=== PATIENT | female | born 2005 | race Caucasian/White ===

== ENCOUNTER 2023-07-23 08:28 | Emergency (ER) | payer BC, SELFPAY ==
--- NOTE | 2023-07-23 08:32 | XR_ITS ---
FINAL REPORT CLINICAL HISTORY: fall FINDINGS: Left ankle Three views were obtained. There is no acute fracture or dislocation. The joint spaces appear normal. No soft tissue abnormality is identified. IMPRESSION: No acute process. Reviewed, Interpreted and Dictated by Bartolo Oh III, MD Transcribed by Fernanda Macario Authenticated and [facility]
--- NOTE | 2023-07-23 08:32 | XR_ITS ---
FINAL REPORT CLINICAL HISTORY: fall. lateral sided pain FINDINGS: Left foot Three views were obtained. There is no acute fracture or dislocation. The joint spaces appear normal. No soft tissue abnormality is identified. IMPRESSION: No acute process. Reviewed, Interpreted and Dictated by Bartolo Oh III, MD Transcribed by Fernanda Macario Authenticated and [facility]
[2023-07-23 09:00] VITALS: BP 123/83; PULSE 76; RESP 18; TEMP 36.8; O2SAT 100; BMI 21.7
--- NOTE | 2023-07-23 09:45 | EXP.UTC ---
Discharge Plan Disposition Patient Disposition: Home, Self-Care Condition: Good Prescriptions Prescriptions: No Action sertraline [Zoloft] 100 mg tablet 100 mg PO DAILY Qty: 90 3RF norgestimate-ethinyl estradiol [Tri-Sprintec (28)] 0.18/0.215/0.25 mg-35 mcg (28) tablet 1 tab PO DAILY Qty: 84 3RF Referrals Follow up/Referrals: Kapil Castro MD [Primary Care Provider] - See instructions Activity Restrictions/Add. Instructions Additional Instructions/Restrictions: *weight bearing as tolerated *RICE, Rest the extremity, Ice 15-20 minutes 3-4 times daily, Compress- wear the leonardo wrap as discussed as much as possible to help reduce swelling and pain, Elevate the extremity when at rest *Leonardo wrap is for support and help control swelling, use it except in the shower. Be sure that is not to tight but not to loose either *Elevate when resting? *Ibuprofen 600mg every 6-8 hours as needed for pain an inflammation. If need something more can take Tylenol in between doses of Ibuprofen to help Immediately follow up with your family doctor for new or worsening of symptoms, or no noticeable improvement over the next 3-5 days Clinical Impressions Clinical Impression: Strain of ankle and foot Qualifiers: Encounter type: initial encounter Laterality: left Qualified Code(s): S96.912A - Strain of unspecified muscle and tendon at ankle and foot level, left foot, initial encounter Instructions Patient Instructions: Ankle Sprain, DI for Foot Sprain Discharge ED Provider: Quiana Dias [facility] General Stated complaint: AO 07/22 TWISTED LT ANKLE Mode of Arrival: Ambulatory Source of Information: Patient and Parent(s) Limitations: No Limitations Time Seen by Provider: 07/23/23 09:45 Description of Symptoms (Recalled from Triage Doc. by RN): PATIENT C/O INJURY TO LEFT ANKLE AFTER FALLING DOWN STAIRS LAST NIGHT HEENT Symptoms (Recalled from RN notes): No Resp Symptoms (Recalled from RN notes): No Skin Symptoms (Recalled from RN notes): No MS Symptoms (Recalled from RN notes): Yes Functional Status (Recalled from RN notes): WNL History of Present Illness Provider Complaint: Patient states that she was walking down the steps last night when she slipped and fell and landed on the side of her foot and ankle States that she has been having pain in her ankle and foot ever since Denies any other injury Related Data Previous Rx's Medication Instructions Recorded sertraline 100 mg tablet (Zoloft) 100 mg PO DAILY #90 tabs 04/11/23 norgestimate-ethinyl estradiol 1 tab PO DAILY #84 tabs 04/29/23 0.18 mg/0.215mg/0.25mg-35 mcg(28)tablet (Tri-Sprintec (28)) Allergies Allergy/AdvReac Type Severity Reaction Status Date / Time cefdinir [From Omnicef] Allergy Mild Verified 05/23/23 09:31 Worker's Comp Is this a Worker's Comp case?: No [facility] Disclaimer: The information contained in this section may have been updated after the patient was seen, as this information can be updated by other users. Medical History (Updated 07/23/23 @ 10:46 by Quiana Dias APRN) Anxiety Asthma Social History Smoking Status: Never smoker alcohol intake: never substance use type: denies use current occupational status: employed Travel in the last 8 weeks: None household members: family housing: house education level: high school ROS Obtained: Yes All systems reviewed & no additional complaints except as documented and Yes Systems reviewed as appropriate & no additional complaints except as documented Constitutional Constitutional: Reports system reviewed and no additional complaints, except as documented and Reports as per HPI Eyes Eyes: Reports system reviewed and no additional complaints, except as documented and Reports as per HPI ENT Ears, Nose, Mouth, and Throat: Reports system reviewed and no additional complaints, except as documented and Reports as
[2023-07-23 10:09] VITALS: BP 123/83; PULSE 76; RESP 18; TEMP 36.8; O2SAT 100
== END 2023-07-23 10:48 | disposition home or self-care (01) ==
PROVIDERS: Emergency Provider Nurse Practitioner; PCP Family Medicine
DX: S96.912A Strain of unspecified muscle and tendon at ankle and foot level, left foot, initial encounter (principal); J45.909 Unspecified asthma, uncomplicated; W10.8XXA Fall (on) (from) other stairs and steps, initial encounter
CPT/HCPCS: 73610; 73630; 99212; 99214; G0463

== ENCOUNTER 2024-01-28 12:08 | Outpatient (CLI) | payer BC, SELFPAY ==
[2024-01-28 18:07] LABS: Basophils % 0.5 % (0.1-2.0); Eosinophils # 0.1 K/mm3 (0.0-0.4); Eosinophils % 1.5 % (0.1-12.0); Hematocrit 41.3 % (37.0-47.0); Hemoglobin 13.5 g/dL (12.2-16.2); Lymphocytes # 1.1 K/mm3 (0.7-4.5); Lymphocytes % 22.4 % (10-50); Mean Corpuscular HGB Conc 32.7 g/dL (31.8-35.4); Mean Corpuscular Hemoglobin 32.7 pg (27.0-31.2); Mean Corpuscular Volume 100.1 fl (81-99); Mean Platelet Volume 10.9 fl (7.4-10.4); Monocytes # 0.2 K/mm3 (0.1-1.0); Monocytes % 4.8 % (1.7-9.3); Neutrophils # 3.4 K/mm3 (1.8-7.8); Neutrophils % 70.9 % (37.0-80.0); Platelet Count 217 K/mm3 (142-424); Red Blood Count 4.13 M/mm3 (4.20-5.40); Red Cell Distribution Width 13.2 % (11.5-17.5); White Blood Count 4.9 K/mm3 (4.5-13.0)
[2024-01-28 18:36] LABS: Alanine Aminotransferase 11 U/L (12-78); Albumin Level 3.8 g/dl (3.5-5.0); Albumin/Globulin Ratio 1.4 (1.1-1.8); Alkaline Phosphatase 84 U/L (38-126); Anion Gap 8.2 mEq/L (5-15); Aspartate Amino Transferase 23 U/L (14-36); Bilirubin,Total 0.4 mg/dl (0.2-1.3); Blood Urea Nitrogen 5 mg/dl (7-17); Calcium 9.3 mg/dl (8.4-10.2); Carbon Dioxide 29 mmol/L (22.0-30.0); Chloride 104 mmol/L (98-107); Estimated Glomerular Filt Rate 91 ml/min (>60); GFR (African American) 111 ML/MIN (>60); Globulin 2.8 g/dL (1.3-3.2); Glucose 93 mg/dl (74-100); Potassium 4.2 mmoL/L (3.5-5.1); Sodium 137 mmol/L (136-145); Total Protein,Serum 6.6 g/dl (6.3-8.2)
== END 2024-01-28 23:59 | disposition home or self-care (01) ==
LOC: LAB.DROPOF 01-29 12:08
PROVIDERS: PCP Nurse Practitioner; Visit Provider Nurse Practitioner
DX: K52.9 Noninfective gastroenteritis and colitis, unspecified (principal)
CPT/HCPCS: 80053; 85025

== ENCOUNTER 2024-03-27 14:53 | Outpatient (CLI) | payer BC, SELFPAY ==
[2024-03-27 19:17] LABS: Thyroid Stimulating Hormone 1.71 uIU/mL (0.465-4.68)
== END 2024-03-27 23:59 | disposition home or self-care (01) ==
LOC: LAB.DROPOF 03-30 14:53
PROVIDERS: PCP Family Medicine; Visit Provider Family Medicine
DX: R53.83 Other fatigue (principal)
CPT/HCPCS: 84443

== ENCOUNTER 2024-09-17 07:29 | Outpatient (CLI) | payer BC, SELFPAY ==
[2024-09-17 08:03] LABS: Basophils % 0.6 % (0.1-2.0); Eosinophils # 0.2 K/mm3 (0.0-0.4); Eosinophils % 3.6 % (0.1-12.0); Hematocrit 36.8 % (37.0-47.0); Hemoglobin 12.5 g/dL (12.2-16.2); Lymphocytes # 1.5 K/mm3 (0.7-4.5); Mean Corpuscular Hemoglobin 30.7 pg (27.0-31.2); Mean Corpuscular Volume 90.4 fl (81-99); Mean Platelet Volume 11.9 fl (7.4-10.4); Monocytes # 0.4 K/mm3 (0.1-1.0); Monocytes % 8.8 % (1.7-9.3); Neutrophils # 2.6 K/mm3 (1.8-7.8); Neutrophils % 55.8 % (37.0-80.0); Platelet Count 226 K/mm3 (142-424); Red Blood Count 4.07 M/mm3 (4.20-5.40); Red Cell Distribution Width 11.8 % (11.5-17.5); White Blood Count 4.7 K/mm3 (4.5-13.0)
[2024-09-17 08:33] LABS: Hemoglobin A1C 4.7 % (4.0-6.0)
[2024-09-17 08:47] LABS: Alanine Aminotransferase 15 U/L (12-78); Albumin Level 4.1 g/dl (3.5-5.0); Albumin/Globulin Ratio 1.7 (1.1-1.8); Alkaline Phosphatase 82 U/L (38-126); Anion Gap 8.7 mEq/L (5-15); Aspartate Amino Transferase 26 U/L (14-36); Bilirubin,Total 0.3 mg/dl (0.2-1.3); Blood Urea Nitrogen 7 mg/dl (7-17); Calcium 9.3 mg/dl (8.4-10.2); Carbon Dioxide 29 mmol/L (22.0-30.0); Chloride 105 mmol/L (98-107); Estimated Glomerular Filt Rate 107 ml/min (>60); GFR (African American) 129 ML/MIN (>60); Globulin 2.4 g/dL (1.3-3.2); Glucose 76 mg/dl (74-100); Potassium 3.7 mmoL/L (3.5-5.1); Sodium 139 mmol/L (136-145); Total Protein,Serum 6.5 g/dl (6.3-8.2)
[2024-09-17 09:18] LABS: Thyroid Stimulating Hormone 1.23 uIU/mL (0.465-4.68)
== END 2024-09-17 23:59 | disposition home or self-care (01) ==
PROVIDERS: PCP Family Medicine; Visit Provider Nurse Practitioner
DX: E16.2 Hypoglycemia, unspecified (principal)
CPT/HCPCS: 36415; 80053; 82533; 83036; 84443; 85025

== ENCOUNTER 2025-03-25 12:11 | Outpatient (CLI) | payer BC, SELFPAY ==
--- OUTSIDE RECORDS SUMMARY | 2024-12-21 04:45 | XMS_ITS ---
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 Encounters Encounter Location Date Provider Diagnosis [facility] [address] [place] [address] 12/21/2024 Katy Farias Plan Of Treatment No Information Progress Notes * Jenise HOLGUINDOB:2005 ([age] yo F)Acc No.[id number]:12/21/2024 Progress Note Patient: Jensie Newsome Provider: José Manuel FARIAS APRN :2005 A ge:19 Y S ex:Female Date:12/21/2024 [id number] Subjective: * Chief Complaints: * 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
--- NOTE | 2025-03-25 12:14 | XR_ITS ---
FINAL REPORT CLINICAL HISTORY: acute low back pain with left-sided sciatica COMPARISON: None FINDINGS: Three views of the lumbosacral spine were obtained. No fracture is identified. Disc spaces are well-maintained. Minimal levoscoliosis. No subluxation. IMPRESSION: Minimal scoliosis. Reviewed, Interpreted and Dictated by Basia Mccann MD Transcribed by Christine Bajwa Authenticated and [facility]
--- NOTE | 2025-03-25 12:14 | XR_ITS ---
FINAL REPORT CLINICAL HISTORY: thoracic back pain COMPARISON: None FINDINGS: Two views of the thoracic spine were obtained. No fracture is seen. Minimal dextroscoliosis. No subluxation. Vertebrae are normal in height. IMPRESSION: Minimal scoliosis. Reviewed, Interpreted and Dictated by Basia Mccann MD Transcribed by Christine Bajwa Authenticated and [facility]
--- OUTSIDE RECORDS SUMMARY | 2025-03-25 12:18 | XMS_ITS | Clinical Summary ---
Author Organization [employer] ([place], [place], [place], [place]) Address [address] [place] [address] Care Team Providers Care Front Desk Person Name Role Phone Kapil Castro MD Primary Care Provider [phone] Allergies Active Allergy Reactions Criticality Noted Date Comments Cefdinir Hives High 08/05/2024 Medications norgestimate-eth inyl estradioL 0.18/0.215/0.25 mg-35 mcg (28) per tablet Take 1 tablet by mouth daily. Active sertraline (ZOLOFT) 100 MG tablet Take by mouth. 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 Gender Identity Not on file Sexual Orientation Not on file Last Filed Vital Signs Vital Sign Reading Time Taken Comments Blood Pressure 122/77 08/05/2024 6:01 PM EST Pulse 66 08/05/2024 6:01 PM EST Temperature 36.8 C (98.3 F) 08/05/2024 4:44 PM EST Respiratory Rate 18 08/05/2024 6:03 PM EST Oxygen Saturation 98% 08/05/2024 6:01 PM EST Inhaled Oxygen Concentration - - Weight 63.5 kg (140 lb) 08/05/2024 4:44 PM EST Height 167.6 cm (5' 6 ) 08/05/2024 4:44 PM EST Body Mass Index 22.6 08/05/2024 4:44 PM EST Plan of Treatment Health Maintenance Due Date Last Done Comments Depression Screening (12+) 2015 HIV Screening 2018 Meningococcal B Vaccine (1 of 2 - Standard) 2019 Hepatitis C Screening 2021 COVID-19 VACCINE ( - 2023- season) 2024 Pap Smear 2024 Influenza Vaccine (#1) 2025 Tobacco Cessation Counseling and Screening (12+) 08/05/2025 08/05/2024 DTAP/TDAP/TD VACCINES (8 - Td or Tdap) 02/07/2030 02/08/2020, 03/17/2015, 10/03/2007, Additional history exists Pneumococcal Vaccine: 0-49 Years Aged Out 10/03/2004, 04/12/2004, 02/10/2004, Additional history exists No longer eligible based on patient's age to complete this topic Insurance BLUE CROSS/BLUE SHIELD Care Teams Front Desk Person Relationship Specialty Start Date End Date Kapil Castro MD [address] [place] [address] PCP - General Family Medicine 08/05/24
--- OUTSIDE RECORDS SUMMARY | 2025-03-25 12:18 | XMS_ITS | Referral Summary ---
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
--- OUTSIDE RECORDS SUMMARY | 2025-03-25 12:18 | XMS_ITS | Data Portability ---
Author Organization [facility],, Main Office Address [address] [place] [address] Assessment Encounter Date Assessment Date Assessment LastModified by Organization Details LastModified Time 12/18/2024 12/18/2024 Annual gynecological exam performed. Patient will come back in a year unless there are new symptoms. [email or web address] Not available 12/18/2024 09:30:51 Plan of Treatment Reminders Order Date Submit Date Provider Last Modified By Organization Details Last Modified Time Details Appointments None recorded. Lab test, urine 2024 025 [facility] CLA[facility] Main Office, [address], [place], [address], 5 16:11:15 urinalysis , dipstick 2024 025 LE CLA[facility] Main Office, [address], [place], [address], 5 12:44:44 Referral None recorded. Procedures None recorded. Surgeries None recorded. Imaging None recorded. Medication Orders None recorded. Patient TargetsNo targets recorded. Patient InstructionsNo instructions recorded. Reason for Referral None Reported. Results Created Date Observation Date Name Description Value Unit Range Abnormal Flag Note LastModifiedBy Organization Detail LastModifiedTime 12/19/1912/22/2024 PAP TEST THIN PREP Pap test thin prep Negati ve for Intrae pithel ial Lesion or Malign danny normal ACCES DIANA #: [id number] 13 Sourc e: Cervi hi/E ndoce rvica l LMP: 04/15 /2025 Date Taken : 12/18 Speci men Type: ThinP rep Vial Date Repor nito: 2024 Clini hi Data: Last Pap: NEVER Cytot ech: Wendy laine Vickerses , CT( CP) Date Repor nito: 2024 Speci men Adequ acy: Satis facto ry for evalu ation Endoc ervic al/tr ansfo rmati on zone compo nent prese nt Gener al Categ oriza tion: NEGAT FATOU FOR INTRA EPITH ELIAL LESIO N OR MALIG JAGRUTI The follo wing tests have been order ed as reque sted and a separ ate repor t will be issue d: Neiss eria gonor rhoea e, Chlam ydia trach omati s, Vagin itis Panel This speci men has been sincere zed by the ThinP rep Imagi ng Syste m, an inter activ e compu ter syste m which jocelyn ts the lab in the scree tarah of ThinP rep Pap Test slide s. Follo wing imagi ng, the slide was revie wed by a Cytot careyno logis t and/o r Patho logis t. Cervi hi cytol ogy is a scree tarah test prima rily for squam ous cance rs and precu rsors and has assoc iated false -nega tive and false -posi tive resul ts. New techn ologi es such as liqui d-bas ed prepa ratio ns may decre ase but will not elimi reji all false -nega tive resul ts. Regul ar sampl ing and follo w-up of unexp sherrie d clini hi signs and sympt oms are recom letty d to minim ize false negat fatou resul ts. End of t Techn ical servi jane provi ded by [facility] [employer], Kopo Kopo, d/b/a Bonnie marks, [address] [place] [address] Kulwinder rouse MD, Labor ator Dire tor. Case revie wed and diagn osis rende red at [facility], [facility], d/b/a Path[facility]ha marks, [address] [place] [address] Kulwinder rouse MD, Labor atory Direc tor. CONFI DENTI AL Not Available [facility] ([facility]) [address], [place], [address], 12/22/2024 11:51:11 12/19/19 25 12/20/2024 VAGIN ITIS PANEL trichomonas vaginalis, aptima (panther) NOT DETECT ED normal Trich omona s vagin cristóbal: DNA testi ng perfo rmed by Trans cript ion Media nito Ampli ficat ion (TMA) These resul ts shoul d be inter prete d in light of all clini hi and labor atory findi ngs. This assay is highl y accur ate, but rare false posit fatou and negat fatou resul ts may occur . Posit fatou resul ts in low preva lence popul ation s may requi re re-ev aluat ion. A negat fatou resul t does not precl ude a possi ble infec tion due to a speci men inade quacy or sampl ing error . Test perfo rmed by [facility], [facility], d/b/a Path deysi, [address], [place] [address] , Unique Vivar ra, DO, Labor atory Direc tor. Gardn erell a vagin cristóbal, Kendy da speci es: Genom ic DNA is isola nito from patie nt speci mens by stand hung labor atory techn iques and sincere zed using custo m OpenA rray plate s, perfo rmed on the Quant Studi o 12K Flex Real Time PCR syste m. A posit fatou resul t is provi ded for patho genic bacte jaqueline, virus and/o r funga l speci es based on detec tion of ampli ficat ion produ cts. Shanice l vagin al deepak resul ts of Shanice l or [place] nito are deter mined by calcu latin g the ratio of the organ ism to the total bacte jaqueline prese nt in the speci men, and tari ring that ratio to a PathG roup patie nt popul ation . Overa ll resul ts of Shanice l, Borde rline and Abnor mal are deter mined using a proba bilit y model which was devel oped by an exten sive sincere sis and integ ratio n of clini hi thres holds for marke r organ isms on a large set of sympt omati c & asymp tomat ic speci mens. Patie nt popul ation s with diffe rent demog raphi cs from the PathG roup model popul ation may have diffe rent indic ator organ isms with diffe rent relat fatou ratio s, which would influ ence the final resul ts. Resul ts shoul d be inter prete d in the jacky xt of all clini hi and labor atory findi ngs. The test was devel oped and its perfo rmanc e donal cteri stics deter mined by [employer], Kopo Kopo d/b/a Path rou. It has not been clear ed or appro saray by the U.S. Food and Drug Admin istra tion. The FDA has deter mined that such clear ance or appro familia is not neces sameer. Perti nent refer ence inter vals are avail able from the labor atory on reque st. Test( s) perfo rmed by [employer], Kopo Kopo, d/b/a Path rou, [address], [place] [address] , Unique Vivar ra, DO, Labor atory Direc tor. Not Available [facility] ([facility]) [address], [place], [address], 12/22/2024 11:51:12 12/19/19 25 12/22/2024 VAGIN ITIS PANEL gee sp. Not Detect ed normal Trich omona s vagin cristóbal: DNA testi ng perfo rmed by Trans cript ion Media nito Ampli ficat ion (TMA) These resul ts shoul d be inter prete d in light of all clini hi and labor atory findi ngs. This assay is highl y accur ate, but rare false posit fatou and negat fatou resul ts may occur . Posit fatou resul ts in low preva lence popul ation s may requi re re-ev aluat ion. A negat fatou resul t does not precl ude a possi ble infec tion due to a speci men inade quacy or sampl ing error . Test perfo rmed by [facility], d/b/a Path rou, [address], [facility] [place] [address] , Unique Vivar ra, DO, Labor atory Direc tor. Gardn erell a vagin cristóbal, Kendy da speci es: Genom ic DNA is isola nito from patie nt speci mens by stand hung labor atory techn iques and sincere zed using custo m OpenA rray plate s, perfo rmed on the Quant Studi o 12K Flex Real Time PCR syste m. A posit fatou resul t is provi ded for patho genic bacte jaqueline, virus and/o r funga l speci es based on detec tion of ampli ficat ion produ cts. Shanice l vagin al deepak resul ts of Shanice l or [place] nito are deter mined by calcu latin g the ratio of the organ ism to the total bacte jaqueline prese nt in the speci men, and tari ring that ratio to a PathG roup patie nt popul ation . Overa ll resul ts of Shanice l, Borde rline and Abnor mal are deter mined using a proba bilit y model which was devel oped by an exten sive sincere sis and integ ratio n of clini hi thres holds for marke r organ isms on a large set of sympt omati c & asymp tomat ic speci mens. Patie nt popul ation s with diffe rent demog raphi cs from the PathG roup model popul ation may have diffe rent indic ator organ isms with diffe rent relat fatou ratio s, which would influ ence the final resul ts. Resul ts shoul d be inter prete d in the jacky xt of all clini hi and labor atory findi ngs. The test was devel oped and its perfo rmanc e donal cteri stics deter mined by [employer] d/b/a [employer] rou. It has not been clear ed or appro saray by the U.S. Food and Drug Admin istra tion. The FDA has deter mined that such clear ance or appro familia is not neces sameer. Perti nent refer ence inter vals are avail able from the [employer] atory on reque st. Test( s) perfo rmed by [email or web address], Kopo Kopo, d/b/a [facility] [employer] rou, [address], [place] [address] , Unique Vivar ra, , Labor ator Dire tor. Not Available [facility]) [address], [place], [address], 12/22/2024 11:51:12 12/19/19 25 12/22/2024 VAGIN ITIS PANEL gardnerella vaginalis Not Detect ed normal Trich omona s vagin cristóbal: DNA testi ng perfo rmed by Trans cript ion Media nito Ampli ficat ion (TMA) These resul ts shoul d be inter prete d in light of all clini hi and labor atory findi ngs. This assay is highl y accur ate, but rare false posit fatou and negat fatou resul ts may occur . Posit fatou resul ts in low preva lence popul ation s may requi re re-ev aluat ion. A negat fatou resul t does not precl ude a possi ble infec tion due to a speci men inade quacy or sampl ing error . Test perfo rmed by [employer], d/b/a [facility] [employer] rou, [address], [place] [address] , Unique Vivar ra, , Labor atory Direc tor. Gardn erell a vagin cristóbal, Kendy da speci es: Genom ic DNA is isola nito from patie nt speci mens by stand hung labor atory techn iques and sincere zed using custo m OpenA rray plate s, perfo rmed on the Quant Studi o 12K Flex Real Time PCR syste m. A posit fatou resul t is provi ded for patho genic bacte jaqueline, virus and/o r funga l speci es based on detec tion of ampli ficat ion produ cts. Shanice l vagin al deepak resul ts of Shanice l or [place] nito are deter mined by calcu latin g the ratio of the organ ism to the total bacte jaqueline prese nt in the speci men, and tari ring that ratio to a PathG roup patie nt popul ation . Overa ll resul ts of Shanice l, Borde rline and Abnor mal are deter mined using a proba bilit y model which was devel oped by an exten sive sincere sis and integ ratio n of clini hi thres holds for marke r organ isms on a large set of sympt omati c & asymp tomat ic speci mens. Patie nt popul ation s with diffe rent demog raphi cs from the PathG roup model popul ation may have diffe rent indic ator organ isms with diffe rent relat fatou ratio s, which would influ ence the final resul ts. Resul ts shoul d be inter prete d in the jacky xt of all clini hi and labor atory findi ngs. The test was devel oped and its perfo rmanc e donal cteri stics deter mined by [employer], Kopo Kopo d/b/a Bonnie marks. It has not been clear ed or appro saray by the U.S. Food and Drug Admin istra tion. The FDA has deter mined that such clear ance or appro familia is not neces sameer. Perti nent refer ence inter vals are avail able from the labor atory on reque st. Test( s) perfo rmed by [facility], d/b/a Bonnie marks, [address], [place] [address] , Unique Vivar ra, DO, Labor atory Dire tor. Not Available [facility] ([facility]) [address] [place] [address] [address], [place], [address], 12/22/2024 11:51:12 12/19/19 25 12/19/2024 NEISS ERIA GONOR RHOEA E neisseria gonorrhoeae, aptima NOT DETECT ED normal DNA testi ng perfo rmed by Trans cript ion Media nito Ampli ficat ion (TMA) . Resul ts shoul d be inter prete d in conju nctio n with patie nt histo ry and clini hi prese ntati on. This assay is highl y accur ate, but rare false posit fatou and negat fatou resul ts may occur . Posit fatou resul ts in low preva lence popul ation s may requi re re-ev aluat ion. A negat fatou resul t does not precl ude a possi ble infec tion due to a speci men inade quacy or sampl ing error . Test perfo rmed by [facility], [facility] d/b/a Bonnie marks, [facility] [address], [place] [address] , Unique Vivra ra, DO, Labor atory Dire tor, CLIA# [id number] Not Available [facility] ([facility]) [address] [place] [address] [address], [place], [address], 12/22/2024 11:51:12 12/19/19 25 12/19/2024 CHLAM YDIA TRACH OMATI S chlamydia trachomatis, aptima NOT DETECT ED normal DNA testi ng perfo rmed by Trans cript ion Media nito Ampli ficat ion (TMA) . Resul ts shoul d be inter prete d in conju nctio n with patie nt histo ry and clini hi prese ntati on. This assay is highl y accur ate, but rare false posit fatou and negat fatou resul ts may occur . Posit fatou resul ts in low preva lence popul ation s may requi re re-ev aluat ion. A negat fatou resul t does not precl ude a possi ble infec tion due to a speci men inade quacy or sampl ing error . Test perfo rmed by [facility] d/b/a [facility], [address], [place] [address] , Unique Vivar ra, DO, Labor atory Dire tor, CLIA# [id number] Not Available [facility] ([facility]) [address], [place], [address], 12/22/2024 11:51:13 Result Notes None recorded. Medical Equipment None Reported. Allergies Allergen ID Allergen Name Allergen Category Reaction Reaction Severity Criticality Documentation Date Start Date Code Code System Note Provider Name and Address Organization Details Recorded Time 6855 Omnicef medicatio n Not available Not available Not available 12/18/2024 34263 RxNorm CLAUDETTE Pinedo [address], [place], [address] [place] [address] [facility]YN[facility], 5 09:57:53 Medications Name Sig Start Date Stop Date Status Note LastModified by Organization Details LastModified Time cyclobenzap rine 10 mg tablet TAKE 1 TABLET BY MOUTH THREE TIMES DAILY NEEDED FOR MUSCLE SPASM 12/18 completed Not Available Not Available Not Available amoxicillin 500 mg capsule TAKE 2 CAPSULES BY MOUTH TWICE DAILY 12/18 completed Not Available Not Available Not Available bupropion HCl SR 150 mg tablet,12 hr sustained-r elease TAKE 1 TABLET BY MOUTH A ONE TIME DOSE active Not Available Not Available No t Available triazolam 0.25 mg tablet TAKE 1 TABLET BY MOUTH AT BEDTIME THE NIGHT BEFORE APPOINTME NT. TAKE SECOND TABLET BY MOUTH ONE HOUR PRIOR TO APPOINTME NT. BRING 3RD TABLET TO APPT. 12/18 completed Not Available Not Available Not Available cetirizine 10 mg tablet TAKE 1 TABLET BY MOUTH ONCE DAILY active Not Available Not Available No t Available ibuprofen 800 mg tablet TAKE 1 TABLET BY MOUTH EVERY 6 TO 8 HOURS NEEDED 12/18 completed Not Available Not Available Not Available hydrocodone 5 mg-acetamin ophen 325 mg tablet TAKE 1 TABLET BY MOUTH EVERY 4 TO 6 HOURS NEEDED FOR PAIN 12/18 completed Not Available Not Available Not Available ondansetron HCl 4 mg tablet TAKE 1 TABLET BY MOUTH EVERY 8 HOURS NEEDED FOR NAUSEA AND VOMITING 12/18 completed Not Available Not Available Not Available prednisone 20 mg tablet TAKE 2 TABLETS BY MOUTH ONCE DAILY 12/18 completed Not Available Not Available Not Available sertraline 100 mg tablet TAKE 1 TABLET BY MOUTH ONCE DAILY active Not Available Not Available No t Available Accu-Chek Softclix Lancets USE 1 TO CHECK GLUCOSE 4 TIMES DAILY 12/18 completed Not Available Not Available Not Available metronidazo le 500 mg tablet TAKE 1 TABLET BY MOUTH THREE TIMES DAILY FOR 7 DAYS 12/18 completed Not Available Not Available Not Available Space Chamber USE DIRECTED 12/18 completed Not Available Not Available Not Available baclofen 10 mg tablet TAKE 1 TABLET BY MOUTH THREE TIMES DAILY 12/18 completed Not Available Not Available Not Available hyoscyamine sulfate 0.125 mg tablet TAKE 1 TABLET BY MOUTH 4 TIMES DAILY NEEDED 12/18 completed Not Available Not Available Not Available buspirone 10 mg tablet TAKE 1 TABLET BY MOUTH TWICE DAILY NEEDED FOR ANXIETY OR DEPRESSIO N active Not Available Not Available No t Available montelukast 10 mg tablet TAKE 1 TABLET BY MOUTH ONCE DAILY 12/18 completed Not Available Not Available Not Available epinephrine 0.3 mg/0.3 mL injection, auto-inject or INJECT CONTENTS OF 1 PEN NEEDED FOR ALLERGIC REACTION 12/18 completed Not Available Not Available Not Available methylpredn isolone 4 mg tablets in a dose pack TAKE BY MOUTH DIRECTED ON INSIDE OF PACKAGE 12/18 completed Not Available Not Available Not Available bromphenira mine-pseudo ephedrine-D M 2 mg-30 mg-10 mg/5 mL oral syrup TAKE 5 ML BY MOUTH EVERY 4 TO 6 HOURS NEEDED FOR COLD SYMPTOMS 12/18 completed Not Available Not Available Not Available fluticasone propionate 50 mcg/actuati on nasal spray,suspe nsion USE 1 SPRAY(S) IN EACH NOSTRIL TWICE DAILY 04/18 /2025 completed Not Available Not Available Not Available naproxen 500 mg tablet TAKE 1 TABLET BY MOUTH TWICE DAILY FOR 7 DAYS 12/18 completed Not Available Not Available Not Available amoxicillin 875 mg-potassiu m clavulanate 125 mg tablet TAKE 1 TABLET BY MOUTH TWICE DAILY 12/18 completed Not Available Not Available Not Available escitalopra m 20 mg tablet TAKE 1 TABLET BY MOUTH ONCE DAILY 2024 active Not Available Not Available Not Avai lable Tri-Sprinte c (28) 0.18 mg(7)/0.215 mg(7)/0.25 mg(7)-0.035 mg tablet TAKE 1 TABLET BY MOUTH ONCE DAILY 2024 active Not Available Not Available Not Avai lable Accu-Chek Guide test strips USE TO CHECK GLUCOSE 4 TIMES DAILY 12/18 completed Not Available Not Available Not Available Accu-Chek Guide Me Glucose Meter USE DIRECTED 12/18 completed Not Available Not Available Not Available Vitals Date Recorded Body height Body mass index (BMI) Body weight Heart rate Body temperature Systolic And Diastolic Provider Name and Address Organization Details Last Updated DateTime 167.64 cm 22.8 kg/m2 40250.5 2 g 69 /min 96.8 [degF] 90/61 mm[Hg] Rishabh Williamson [facility], 09:41:19 Social History Question Answer Notes LastModified by Organizat ion Details LastModified Time Tobacco Smoking Status Never Smoker Rishabh Williamson [facility], 12/18/2024 09:35:56 Do You Have An Advance Directive? No [email or web address] Information n ot available 12/18/2024 Are You Currently Sexually Active With Anyone Who Has Traveled (within The Last 12 Weeks) To A Zika-affected Area? No Information not available 12/18/2024 Do You Wear A Helmet When Biking? Yes [email or web address] Information not available 12/18/2024 Are You Blind Or Do You Have Difficulty Seeing? No [email or web address] Information n ot available 12/18/2024 Is Blood Transfusion Acceptable In An Emergency? Yes [email or web address] Information not available 12/18/2024 What Is Your Level Of Caffeine Consumption? Moderate [email or web address] Information not available 12/18/2024 In The 14 Days Before Symptom Onset, Have You Had Close Contact With A Laboratory-confirm ed COVID-19 While That Case Was Ill? No [email or web address] Information n ot available 12/18/2024 In The 14 Days Before Symptom Onset, Have You Had Close Contact With A Person Who Is Under Investigation For COVID-19 While That Person Was Ill? No [email or web address] Information not available 12/18/2024 Have You Been To An Area Known To Be High Risk For COVID-19? No [email or web address] Information not available 12/18/2024 Are You Deaf Or Do You Have Serious Difficulty Hearing? No [email or web address] Information not available 12/18/2024 What Type Of Diet Are You Following? REGULAR [email or web address] Information n ot available 12/18/2024 Have You Processed Blood Or Body Fluids From An Ebola Virus Disease Patient Without Appropriate PPE? No [email or web address] Information not available 12/18/2024 Do You Reside In Or Have You Traveled To An Area Where Ebola Virus Transmission Is Active? No [email or web address] Information not available 12/18/2024 What Is The Highest Grade Or Level Of School You Have Completed Or The Highest Degree You Have Received? [id number] [email or web address] Information not available 12/18/2024 Have There Been Any Changes To Your Family Or Social Situation? No [email or web address] Information no t available 12/18/2024 Are There Any Guns Present In Your Home? Yes [email or web address] Information not available 12/18/2024 Have You Recently Or Are You Planning To Travel To An Area With Zika Virus? No [email or web address] Information not available 12/18/2024 Do You Use Insect Repellent Routinely? No [email or web address] Information not available 12/18/2024 Do You Have A Medical Power Of Tourist Information Assistant? No [email or web address] Information not available 12/18/2024 How Many Children Do You Have? 0 Information not available 12/18/2024 Do You Have Any Pets? Yes [email or web address] Information not available 12/18/2024 What Is Your Relationship Status? Single Information not available 12/18/2024 Do You Use Your Seat Belt Or Car Seat Routinely? Yes [email or web address] Information not available 12/18/2024 Do You Have Smoke And Carbon Monoxide Detectors In Your Home? Yes [email or web address] Information not available 12/18/2024 Are You Passively Exposed To Smoke? No [email or web address] Information no t available 12/18/2024 Are There Any Smokers In Your House? No [email or web address] Information not available 12/18/2024 Do You Use Sunscreen Routinely? Yes Information not available 12/18/2024 Do You Have Difficulty Walking Or Climbing Stairs? No [email or web address] Information not available 12/18/2024 Sex: Unknown Functional Status Question Answer Note LastModified by Organizat ion Details LastModified Time Do you use any illicit or recreational drugs? No [email or web address] Information not available 12/18/2024 What is your level of alcohol consumption? Occasional [email or web address] Information not available 12/18/2024 Are you currently employed? Yes [email or web address] Information not available 12/18/2024 Do you have transportation difficulties? No [email or web address] Information not available 12/18/2024 Are you able to walk? YESWOREST [email or web address] Information not available 12/18/2024 Do you have difficulty doing errands alone? No [email or web address] Information not available 12/18/2024 Are you able to care for yourself? Yes [email or web address] Information n ot available 12/18/2024 Do you have difficulty dressing or bathing? No [email or web address] Information not available 12/18/2024 What is your exercise level? None [email or web address] Information not available 12/18/2024 Mental Status Question Answer Note LastModified by Organizat ion Details LastModified Time Do you feel stressed (tense, restless, nervous, or anxious, or unable to sleep at night)? [id number] Information not available 12/18/2024 Do you have difficulty concentrating, remembering or making decisions? No [email or web address] Information no t available 12/18/2024 Family History Relationship Description Onset Age of this Age Resolved Age Notes LastModified by Organization Details LastModified Time Maternal Grandmother Diabetes mellitus [email or web address] Not available 12/01 09:35:05 Paternal Grandmother Diabetes mellitus [email or web address] Not available 12/01 09:35:05 Paternal Grandmother Arthritis [email or web address] Not available 12/18/2024 09:35:22 Medical History Condition Response Anxiety Disorder Y Asthma Y Gynecological History Statement/Question Response Flow Moderate Date of LMP 12/15/2024 On BCP's at Conception? Y STIs/STDs N HPV Vaccine Y Duration of Flow (days) 7 Age at Menarche 11 Current Control Method BCPs Frequency of Cycle (Q days) 28 Sexually Active? Y Menses Monthly Y Sexual Problems? N LMP Definite Obstetrics History GPAL:G 0 P 0 0 0 0 Past Encounters Encounter ID Performer Location Encounter Start Date Encounter Closed Date Diagnosis/Indication Diagnosis SNOMED-CT Code Diagnosis ICD10 Code Diagnosis Note [id number] Adrián Westfall DO Main Office [address] [place] [address] 12/18/2024 09:13:47 12/18/2024 10:13:17 Routine gynecologic examination [id number] Z01.419 pap Health Concerns Section Related Observation LastModified by Organization Detai ls LastModified Time None Recorded Concern Status LastModified by Organization Details LastModified Time None Recorded Advance Directives Directive N: Payers Insurance Date Sequence Insurance Name Policy Number Policy Girard Covered Member ID Girard Member ID Guarantor Name 01/01/2025 1 [place] [id number] A Artemio Webber [id number] Jenise Webber Notes Date Note Type Note Provider Name and Address Organization Details Recorded Time 12/18/2024 text/html Annual GYNReport ed by PatientHistoryFor history, patient reportsno gynecologic complaintsandno change in interval history.Genitourinary symptomsFor menstrual cycle, patient reportsnormal menses. For urinary symptoms, patient reportsno hematuriaandno incontinence. For vulva, patient reportsno genital lesion. For vagina, patient reportsnormal vaginal discharge.Breast symptomsFor breast, patient reportsno breast pain,no breast lump, andno nipple discharge.Contraceptio nFor current contraception, patient reportssatisfied with current contraception.Endocrin e symptomsFor sexual complaints, patient reportsno sexual complaints,no pain during intercourse, andnormal libido. For menopausal symptoms, patient reportsno menopausal symptomsandnormal vaginal lubrication.Psychologi hi symptomsFor psychological symptoms, patient reportsno depression,no anxiety, andno pmdd. Adrián Westfall, [address], [place], [address], [facility], 01/01/2025 21:03:17 OBGyn Episode No OBEpisode recorded.
--- OUTSIDE RECORDS SUMMARY | 2025-03-25 12:18 | XMS_ITS | Data Portability ---
Author Organization [place] [facility] Address [address] [place] [address] Care Team Providers Care Hand Almond Blancher Name Role Phone ALEXANDRO ROQUE Referring Provider Assessment Encounter Date Assessment Date Assessment LastModified by Organization Details LastModified Time 10/19/2022 10/19/2022 chest wall pain Not available 10/19/2022 10:30:24 Plan of Treatment Reminders Order Date Submit Date Provider Last Modified By Organization Details Last Modified Time Details Appointments None record ed. Lab None record ed. Referral None record ed. Procedures None record ed. Surgeries None record ed. Imaging XR, ribs, unilat eral, 2 view - left side 023 10/19/19 [email or web address] [place] (Centralized Scheduling), [address] [place] [address], [place], [address], 3 11:53:36 Medication Orders None record ed. Patient TargetsNo targets recorded. Patient Instructions Encounter Date Encounter Id Patient Instructions Last Modified By Organization Details Last Modified Time 10/19/2022 [id number] the patient's mother, and the patient were counseled that given the patient has no GI complaints, further investigation from a GI perspective at this time is not indicated. We will order a plain film of the ribs in question, and further investigation is desired referral to a more appropriate search consultant may be beneficial Not available 10/19/2022 10:40:15 Reason for Referral None Reported. Results Created Date Observation Date Name Description Value Unit Range Abnormal Flag Note LastModifiedBy Organization Detail LastModifiedTime 10/19/19 23 10/19/2022 XR, ribs, unila teral , 2 view [place] [facility] Name: Boris WEBBERa l [employer] Phys: Woody RODRIGUEZ, [place] [address] : 2005 Age: 17 Sex: F Acct: [id number] Loc: G.RAD PHONE #: Exam Date: 2022 Status : REG CLI FAX #: Rad# [id number] Unit# [id number] Admit Date: 2022 EXAMS: CPT CODE: [id number] RIBS LT W/CHES T [place] [address] Histor y: 17-yea r-old female with a palpab le abnorm ality of the left anteri or rib. Findin gs: PA view of the chest and left-s ided rib series , for additi onal views, dated 023. Compar alexandra is made with prior study from 09/09/19 10. No focal infilt rate is identi fied. No pleura l effusi on or pneumo thorax is seen. Heart size is normal . No acute displa bibi rib fractu res are identi fied. No visibl e lytic or sclero tic bone lesion s. IMPRES DIANA: 1. No visibl e abnorm ality. 2. Clinic al follow -up is recomm ended. If the palpab le abnorm ality enlarg es, furthe r workup with CT would be recomm ended. Electr onical ly Signed by SG MCKEON MD on 2022 at 1302 Report ed and signed by: SG MCKEON MD CC: Alexandro Roque DRYWALL HANGER HELPER; Arley Mckay Dictat ed Date/T priti: 2022 (1302) Techno logist : CÉSAR DUENAS Transc ribed Date/T priti: 2022 (1302) Transc riptio nist: DR.CLA HUNTER Electr onic Signat ure Date/T priti: 2022 (1302) Printe d Date/T priti: 2022 (8143) BATCH NO: N/A PAGE 1 Signed Report CC'ed Logic: Orderi ng Provid er: WOODY VARGAS Attend ing Provid er: WOODY VARGAS Referr ing Provid er: WOODY VARGAS Consul ting Provid er: JUDE augustine [address] [place], [address], 10/26/2022 11:53:36 Result Notes Documentation Provider Name and Address Organization Details Recorded Time Xr, Ribs, Unilateral, 2 View : [facility] Name: NOMI WEBBER [address] [place] [address] Phys: Woody RODRIGUEZ, [place] [address] : 2005 Age: 17 Sex: F Acct: [id number] Loc: NICOLETTE PHONE #: Exam Date: 10/19/2022 Status: REG CLI FAX #: Rad# [id number] Unit# [id number] Admit Date: 10/19/2022 EXAMS: CPT CODE: [id number] RIBS LT W/CHEST AP/PA [address]63 History: 17-year-old female with a palpable abnormality of the left anterior rib. Findings: PA view of the chest and left-sided rib series, for additional views, dated 10/19/2022. Comparison is made with prior study from 09/09/2009. No focal infiltrate is identified. No pleural effusion or pneumothorax is seen. Heart size is normal. No acute displaced rib fractures are identified. No visible lytic or sclerotic bone lesions. IMPRESSION: 1. No visible abnormality. 2. Clinical follow-up is recommended. If the palpable abnormality enlarges, further workup with CT would be recommended. at 1302 Reported and signed by: PATRICK MCKEON MD CC: Alexandro Roque APRN; Arley Mckay Dictated Date/Time: 10/19/2022 (1302) Technologist: CÉSAR DUENAS Transcribed Date/Time: 10/19/2022 (1302) Captain Cannery Tender: Electronic Signature Date/Time: 10/19/2022 (2790) Printed Date/Time: 10/19/2022 (8335) BATCH NO: N/A PAGE 1 Signed Report CC'ed Logic: Ordering Provider: WOODY VARGAS Attending Provider: WOODY VARGAS Referring Provider: WOODY VARGAS Consulting Provider: JUDE damon null, [place] [facility] [place] & [place] 10/26/2022 11:53:36 Problems Name Problem SNOMED Code Status Onset Date Resolution Date Notes Provider Name and Address Organization Details Recorded Time Suspected COVID-19 149613984 Active Jose Hogangieri null, [place] [facility] [place] [facility] [place] 3 10:40:11 Acne 75352841 Active 2019 Jose Gunderson [place], [place] [facility] 3 10:40:11 Asthma 522928271 Active 2019 Jose Gunderson null, [place] [facility] [place] [facility] [place] 3 10:40:11 Scoliosis deformity of spine 400912253 Active 2021 Jose Gunderson null[place] [facility] [facility] [place] 3 10:40:11 Influenza caused by Influenza A virus 814649897 Active 2021 Jose Neptali null[place] [facility] [facility] [place] 3 10:40:11 Pharyngitis 535648215 Active 2022 Jose Gunderson null[place] [facility] 3 10:40:11 Chest wall pain 009254952 Active 2022 Jose Gunderson [place] [facility] [facility] [place] 3 10:40:11 Left upper quadrant pain 832937468 Active 2022 Jose Gunderson null[place] [facility] [place] 3 10:40:11 Urine culture - E. coli 828563404 Active 2022 Jose Gunderson null[place] [facility] [facility] [place] 3 10:40:11 Acute urinary tract infection 027902773 Active 2022 FRANCISCO JAVIER [facility] & [place] 3 10:40:11 Problem Notes None recorded. Procedures Surgical History Date Name Laterality Status Provider Name and Address Organization Details Recorded Time 3 CT of abdomen with contrast completed Jose [facility] & [place] 10/18/2022 10:42:56 3 standard chest X-ray completed Jose [facility] & [place] 10/18/2022 10:43:18 Imaging Results None recorded. Procedure Notes None recorded. Medical Equipment None Reported. Allergies Allergen ID Allergen Name Allergen Category Reaction Reaction Severity Criticality Documentation Date Start Date Code Code System Note Provider Name and Address Organization Details Recorded Time 97019 Omnicef medicatio n rash moderate Not available 10/18/2022 39969 RxNorm FRANCISCO JAVIER [facility] & [place] 3 10:40:11 Medications Name Sig Start Date Stop Date Status Note LastModified by Organization Details LastModified Time amoxicillin 500 mg capsule Take 1 capsule twice a day by oral route as directed for 7 days. 09/26 completed Not Available Not Available Not Available doxycycline hyclate 100 mg capsule Take 1 capsule every day by oral route for 10 days. 02/07 completed Not Available Not Available Not Available clindamycin HCl 300 mg capsule TAKE 1 CAPSULE BY MOUTH THREE TIMES DAILY FOR 10 DAYS 05/09 completed Not Available Not Available Not Available azithromyci n 250 mg tablet TAKE 2 TABLETS BY MOUTH ON DAY 1, AND THEN TAKE 1 TABLET BY MOUTH ONCE A DAY ON DAY 2 THROUGH DAY 5 11/22 completed Not Available Not Available Not Available benzoyl peroxide 2.5 % topical gel APPLY A THIN LAYER TOPICALLY TO AFFECTED AREA ONCE DAILY 11/24 completed Not Available Not Available Not Available Aplisol 5 tub. unit/0.1 mL intradermal injection solution Inject 0.1 mL by intraderm al route. 06/27 completed Not Available Not Available Not Available dexamethaso ne 6 mg tablet TAKE 1 TABLET BY MOUTH ONCE DAILY 10/24 completed Not Available Not Available Not Available sulfamethox azole 800 mg-trimetho prim 160 mg tablet TAKE 1 TABLET BY MOUTH EVERY 12 HOURS FOR 7 DAYS 05/09 completed Not Available Not Available Not Available clindamycin 1 % topical gel APPLY A THIN LAYER TO THE AFFECTED AREA(S) BY TOPICAL ROUTE 2 TIMES PER DAY as needed 10/24 completed Not Available Not Available Not Available oseltamivir 75 mg capsule Take 1 capsule twice a day by oral route as directed for 5 days. 07/23 completed Not Available Not Available Not Available methylpredn isolone 4 mg tablets in a dose pack Take 1 dose pk by oral route as directed. 09/26 completed Not Available Not Available Not Available albuterol sulfate HFA 90 mcg/actuati on aerosol inhaler INHALE 2 PUFFS BY MOUTH EVERY 4 HOURS NEEDED active Not Available Not Available No t Available bromphenira mine-pseudo ephedrine-D M 2 mg-30 mg-10 mg/5 mL oral syrup Take 10 mL every 6-8 hours by oral route as needed. 07/23 completed Not Available Not Available Not Available amoxicillin 875 mg-potassiu m clavulanate 125 mg tablet TAKE 1 TABLET BY MOUTH TWICE DAILY FOR 10 DAYS 05/09 completed Not Available Not Available Not Available Tri-Sprinte c (28) 0.18 mg(7)/0.215 mg(7)/0.25 mg(7)-0.035 mg tablet Take 1 tablet by mouth once daily active Not Available Not Available No t Available nitrofurant oin monohydrate /macrocryst als 100 mg capsule Take 1 capsule every 12 hours by oral route as directed for 10 days. 10/19 completed Not Available Not Available Not Available Vitals Date Recorded Body height Body mass index (BMI) [Percentile] Per age and sex Body mass index (BMI) Body weight Respiratory rate Body temperature Heart rate Systolic And Diastolic Provider Name and Address Organization Details Last Updated DateTime 3 167.64 cm 66 % 23 kg/m2 09634.8 4 g 16 /min 98.3 [degF] 71 /min 128/84 mm[Hg] Jose Gunderson [place] - [facility] - [facility] 3 09:42:46 Social History Question Answer Notes LastModified by Organizat ion Details LastModified Time Tobacco Smoking Status Never Smoker Jose Hogannathaly suazo, FRANCISCO JAVIER [facility] 10/18/2022 10:42:08 What Is Your Level Of Caffeine Consumption? Moderate Information not available 10/19/2022 What Type Of Diet Are You Following? REGULAR Information not available 10/19/2022 Sex: Unknown Functional Status Question Answer Note LastModified by Organizat ion Details LastModified Time Do you use any illicit or recreational drugs? No Information not available 10/19/2022 What is your level of alcohol consumption? None Information not available 10/19/2022 What is your exercise level? Moderate Information not available 10/19/2022 Mental Status None recorded. Family History Relationship Description Onset Age of this Age Resolved Age Notes LastModified by Organization Details LastModified Time Maternal Grandmother Diabetes mellitus mruggieri Not available 2022 10:41:19 Maternal Grandmother Hypertensive disorder mruggieri Not available 2022 10:41:33 Paternal Grandmother Diabetes mellitus mruggieri Not available 2022 10:41:19 Paternal Grandfather Heart disease mruggieri Not available 2022 10:41:44 Maternal Grandfather Primary malignant neoplasm of lung 38 mruggieri Not available 2022 09:45:11 Maternal Grandfather Kidney disease mruggieri Not available 2022 09:45:21 Medical History Condition Response Coronary Artery Disease N None N Gout N Colon Cancer N Kidney Stones N Hyperthyroidism N Depression N COPD N Hypothyroidism N Osteoporosis/Osteopenia N Diverticulitis/Diverticulosis N Colon Polyps N Anxiety Disorder N Diabetes N Bleeding Disorder N Arthritis N Seizures/Epilepsy N Tuberculosis N Hyperlipidemia N Cancer N Stroke N Asthma Y Sleep Apnea N GERD/Reflux N Hepatitis N Cirrhosis N Liver Disease N Heart Disease N Hypertension N Kidney Disease N Gynecological HistoryNo gynecological history recorded. Obstetrics History GPAL:G 0 P 0 0 0 0 Immunizations Vaccine Type Date Status Note Provider Nam e and Address Organization Details Recorded Time Influenza, split virus, quadrivalent, preservative 0 completed Jose Neptali gabriele, [place] - [place] [facility] 10/18/2022 10:40:12 Influenza, split virus, quadrivalent, preservative 7 completed Jose Hendrickseri null, [place] [facility] & [place] 10/18/2022 10:40:12 Influenza, split virus, quadrivalent, preservative 8 completed Jose Hendrickseri null[place] [facility] [place] 10/18/2022 10:40:12 Influenza, split virus, quadrivalent, preservative 6 completed Jose Hendrickseri [place] 10/18/2022 10:40:12 Influenza, split virus, quadrivalent, preservative 6 completed Jose Gunderson [place] 10/18/2022 10:40:12 Hib-Hep B 4 completed Jose Gunderson [place] 10/18/2022 10:40:12 HPV9 5 completed Jose Gund[place] 10/18/2022 10:40:12 HPV9 7 completed Jose Gunderson null[place] [facility] [facility] & [place] 10/18/2022 10:40:12 IPV 4 completed Jose Gund[place] 10/18/2022 10:40:12 IPV 4 completed Jose Gund[place] 10/18/2022 10:40:12 meningococcal ACWY, unspecified formulation 5 completed Jose Gunderson [place] 10/18/2022 10:40:12 MMR 8 completed Jose Gund[place] 10/18/2022 10:40:12 MMR 5 completed Jose Gund[place] 10/18/2022 10:40:12 pneumococcal conjugate PCV 7 5 completed Jose Neptali [place] 10/18/2022 10:40:12 pneumococcal conjugate PCV 7 4 completed Jose Hogangieri [place] 10/18/2022 10:40:12 pneumococcal conjugate PCV 7 4 completed Jose Hogangieri [place] 10/18/2022 10:40:12 pneumococcal conjugate PCV 7 4 completed Jose Hogangieri [place] 10/18/2022 10:40:12 Tdap 0 completed Jose Hendrickseri [place] 10/18/2022 10:40:12 Tdap 5 completed Jose Hogangieri [place] 10/18/2022 10:40:12 varicella 5 completed Jose Hogangieri [place] 10/18/2022 10:40:12 varicella 8 completed Jose Hogangieri [place] 10/18/2022 10:40:12 Hep B, unspecified formulation 4 completed Jose Hogangieri [place] 10/18/2022 10:40:12 Hep B, unspecified formulation 4 completed Jose Hendrickseri [place] 10/18/2022 10:40:12 Hep B, unspecified formulation 4 completed Jose Hogangieri [place] 10/18/2022 10:40:12 Hep B, unspecified formulation 4 completed Jose Hogangieri [place] 10/18/2022 10:40:12 HPV, unspecified formulation 5 completed Jose Hogangieri [place] 10/18/2022 10:40:12 pneumococcal, unspecified formulation 5 completed Jose Hendrickseri [place] 10/18/2022 10:40:12 pneumococcal, unspecified formulation 4 completed Jose Hogangieri [place] 10/18/2022 10:40:12 pneumococcal, unspecified formulation 4 completed Jose Hogangieri [place] 10/18/2022 10:40:12 pneumococcal, unspecified formulation 4 completed Jose Hogangieri [place] 10/18/2022 10:40:12 polio, unspecified formulation 8 completed Jose Hogangieri [place] 10/18/2022 10:40:12 polio, unspecified formulation 4 completed Jose Hendrickseri null[place] [facility] & [place] 10/18/2022 10:40:12 Influenza, split virus, trivalent, preservative 5 completed Jose Hendrickseri [place] 10/18/2022 10:40:12 HPV, quadrivalent 5 completed Jose Hendrickseri [place] 10/18/2022 10:40:12 Hep A, ped/adol, 2 dose 8 completed Jose Hendrickseri [place] 10/18/2022 10:40:12 Hep A, ped/adol, 2 dose 7 completed Jose Hendrickseri [place] 10/18/2022 10:40:12 Hib (PRP-OMP) 5 completed Jose Hendrickseri [place] 10/18/2022 10:40:12 Hib (PRP-OMP) 4 completed Jose Hendrickseri null[place] [facility] [facility] & [place] 10/18/2022 10:40:12 meningococcal MCV4P 0 completed Jose suazo, FRANCISCO JAVIER - [facility] - [place] & [place] 10/18/2022 10:40:12 meningococcal MCV4P 5 completed oJse Gunderson null, FRANCISCO JAVIER - [facility] - [place] & [place] 10/18/2022 10:40:12 DTaP 8 completed Jose Gunderson null, FRANCISCO JAVIER - [facility] - [place] & [place] 10/18/2022 10:40:12 DTaP, unspecified formulation 4 completed Jose Gunderson null, FRANCISCO JAVIER - [facility] - [place] & [place] 10/18/2022 10:40:12 DTaP, unspecified formulation 5 completed Jose suazo, FRANCISCO JAVIER - [facility] - [place] & [place] 10/18/2022 10:40:12 DTaP, unspecified formulation 4 completed Jose Gunderson null, FRANCISCO JAVIER - [facility] - [place] & [place] 10/18/2022 10:40:12 DTaP-Hep B-IPV 4 completed Jose suazo, FRANCISCO JAVIER - [facility] - [place] & [place] 10/18/2022 10:40:12 Past Encounters Encounter ID Performer Location Encounter Start Date Encounter Closed Date Diagnosis/Indication Diagnosis SNOMED-CT Code Diagnosis ICD10 Code Diagnosis Note [id number] Arley Mckay MD [facility] [address] [place] [phone] 10/19/2022 09:34:45 10/19/2022 10:34:36 Chest wall pain 538071895 R07.89 The patient has left-sided inferior chest wall pain. There is no abdominal pain. or other GI complaints . The patient will be sent for a unilateral rib series to look at the inferior rib specifical ly.If further investigat ion is desired, would recommend considerat ion of referral to ortho Health Concerns Section Related Observation LastModified by Organization Detai ls LastModified Time None Recorded Concern Status LastModified by Organization Details LastModified Time None Recorded Advance Directives Directive None Recorded Payers Insurance Date Sequence Insurance Name Policy Number Policy Giarrd Covered Member ID Girard Member ID Guarantor Name 10/19/2022 1 [place] [id number] A Artemio Webber [id number] Nomi Webber Notes Date Note Type Note Provider Name and Address Organization Details Recorded Time 10/19/2022 text/html this is a 17-year-old female referred for evaluation of left upper quadrant pain. The patient actually reports that she does not have pain in the left upper quadrant of her abdomen, but has had left lower chest wall pain. This is something that comes and goes, but it has been associated what she feels like is an area of prominence in the left inferior ribs. The patient denies any trauma, the patient has had no injury. The patient has had blood work to include a comprehensive metabolic panel, and a CBC that were normal (specifically the patient's calcium and alkaline phosphatase were normal. ) The patient has had a plain film of the chest, but this is not available for review. In the patient has had a CT scan of the of the abdomen with IV and oral contrast. These films are not available for review but the report stated it was a normal CT scan of the abdomen with contrast. The report stated there were no acute osseous abnormalities noted. The spleen was of normal size. The patient has no GI complaints. There is no abdominal pain. The patient has had no nausea or vomiting, no heartburn or indigestion no diarrhea or constipation no melena or bright red blood per rectum. The chest wall discomfort comes and goes without specific triggers. Arley Mckay MD [address] [place] [address],[address], [place], [address], [facility] - NT [facility] & [place] 10/19/2022 10:40:30 OBGyn Episode No OBEpisode recorded.
--- OUTSIDE RECORDS SUMMARY | 2025-03-25 12:19 | XMS_ITS | Clinical Summary ---
Author Organization [facility] Address [address] [place] [phone] Phone Care Team Providers Care Chairman Ceo Name Role Phone No Pcp, Provider Not In [facility] Primary Care Provid er Unavailable Allergies Active Allergy Reactions Criticality Noted Date Comments Cefdinir Rash High 01/26/2024 Medications norgestimate-eth inyl estradioL (ORTHO TRI-CYCLEN;TRI-S PRINTEC) 0.18/0.215/0.25 mg-35 mcg (28) Oral Tablet Take 1 Tablet by mouth daily. Active sertraline (ZOLOFT) 100 mg Oral Tablet Take by mouth daily. Active Social History Tobacco Use Types Packs/Day Years Used Date Smoking Tobacco: Never Smokeless Tobacco: Never Alcohol Use Standard Drinks/Week Comments Not Currently 0 (1 standard drink = 0.6 oz pur e alcohol) Sexually Active Control Partners Comments Never Comments Unknown Sex and Gender Information Value Date Recorded Sex Assigned at Not on file Legal Sex Female 5:41 PM EDT Gender Identity Not on file Sexual Orientation Not on file Obstetrics History Last Filed Vital Signs Vital Sign Reading Time Taken Comments Blood Pressure 109/63 01/26/2024 8:53 PM EDT Pulse 68 01/26/2024 8:53 PM EDT Temperature 36.8 C (98.3 F) 01/26/2024 6:32 PM EDT Respiratory Rate 18 01/26/2024 8:53 PM EDT Oxygen Saturation 97% 01/26/2024 8:53 PM EDT Inhaled Oxygen Concentration - - Weight 61 kg (134 lb 6.4 oz) 01/26/2024 5:58 PM EDT Height 170.2 cm (5' 7 ) 01/26/2024 5:58 PM EDT Body Mass Index 21.05 01/26/2024 5:58 PM EDT Plan of Treatment Health Maintenance Due Date Last Done Comments Annual Wellness Exam 2006 Meningococcal B Vaccine (1 of 2 - Standard) 2019 COVID-19 Vaccine ( season) 2024 Cervical Cancer Screening 2024 Pap Smear 2024 Influenza Vaccine (#1) 2025 , 06/02/2020, 06/09/2018, Additional history exists DTaP/TDaP/Td (8 - Td or Tdap) 02/07/2030 02/08/2020, 03/17/2015, 10/03/2007, Additional history exists Hepatitis B Vaccine Completed 04/12/2004, 04/12/2004, 02/10/2004, Additional history exists Pneumococcal Vaccine 0-49 Aged Out 2004, 04/12/2004, 02/10/2004, Additional history exists No longer eligible based on patient's age to complete this topic HPV Completed 06/07/2017, 01/2015, 03/17/2015, Additional history exists Insurance Grant [facility]CO JAVIER [place] [id number] [facility] Care Teams Chairman Ceo Relationship Specialty Start Date End Date No Pcp, Provider Not In Epic PCP - General 01/26/24
--- OUTSIDE RECORDS SUMMARY | 2025-03-25 12:19 | XMS_ITS | Data Portability ---
Author Organization [facility] Address [address] [place] [address] Assessment Encounter Date Assessment Date Assessment LastModified by Organization Details LastModified Time 11/24/2021 11/24/2021 Take prescribed medication as written. Discussed potential side effects of medication. Keep affected area clean and dry. Wash daily with antibacterial soap. Educated on worsening signs of infection and when to seek immediate medical care in the ED. Patient reports periods are regular and mild on Tri-sprintec. Continue as previously prescribed, [email or web address] Not available 11/27/2021 08:45:42 06/27/2022 06/27/2022 Pt presents today with flu like symptoms. Flu swab was positive in clinic today. Advised increasing fluids, rest and continuing tylenol and motrin as needed for fever and discomfort. Begin meds as written today. Pt verbalizes understanding and agrees. Pt advised to rest, drink clear fluids, use a humidifier, gargle with warm salt water, use Ibuprofen for fever prophylaxis. Supportive care reviewed for any URI symptoms: raising HOB, humidifier use, limited nasal suctioning in infants, saline nasal spray, rest, encourage PO fluids with frequent sips of clear electrolyte-rich fluids (Pedialyte or Gatorade) and ADAT, monitor hydration status, infection control measures. Follow-up as below. [email or web address] Not available 06/27/2022 11:45:34 09/11/2022 09/11/2022 Service was provided using telemedicine. The patient verbally consents to virtual services and the consent is documented in the medical record prior to using the service. Patient is located at their place of residence Provider is located at medical clinic. Names and roles of all persons participating in telemedicine services include:DEE , patient [email or web address] Not available 09/11/2022 11:29:08 Plan of Treatment Reminders Order Date Submit Date Provider Last Modified By Organization Details Last Modified Time Details Appointments None recorded. Lab CMP, serum or plasma 2022 023 [place] [facility], [address], Josh F, [place], [address], 3 09:38:42 CBC w/ auto diff 2022 023 [place] [facility], [address], Josh [address], [place], [address], 3 09:38:41 urinalysis , dipstick [address], [address] [place], [address], 3 13:03:34 culture, urine 2022 023 [place] [facility], [address], [address], [place], [address], 3 16:35:57 rapid strep group A, throat [address], [address] [place], [address], 2 13:22:24 rapid flu (A+B) [address], [address] [place], [address], 2 13:22:24 PPD (purified protein derivative ), skin test 2021 022 [facility], [address] [place], [address], 2 11:44:37 Referral None recorded. Procedures None recorded. Surgeries None recorded. Imaging CT, abdomen, w/ contrast 2022 023 [facility], [facility], [address], [place], [address], 3 15:53:37 XR, chest, 2 view 2022 023 [facility], [address] [facility] [place], [address], 3 14:30:15 Medication Orders amoxicilli n 500 mg capsule 2022 023 [email or web address] [facility], [address] [place], [address], 3 09:50:21 Medrol (Isai) 4 mg tablets in a dose pack 2022 023 [email or web address] [facility], [address] [place], [address], 3 09:50:25 albuterol sulfate HFA 90 mcg/actuat ion aerosol inhaler 2021 022 [facility], [address] [place], [address], 2 11:48:33 oseltamivi r 75 mg capsule 2021 022 [email or web address] [facility], [address] [place], [address], 2 11:32:18 Aplisol 5 tub. unit/0.1 mL intraderma l injection solution 2021 022 Not available 2 10:56:30 Tri-Sprint ec (28) 0.18 mg(7)/0.21 5 mg(7)/0.25 mg(7)-0.03 5 mg tablet 2021 ANITRA [facility], [address] [place], [address], 12:07:23 Bactrim DS 800 mg-160 mg tablet 2021 022 negro [facility], [address] [place], [address], 11:06:35 Patient TargetsNo targets recorded. Patient Instructions Encounter Date Encounter Id Patient Instructions Last Modified By Organization Details Last Modified Time 05/09/2022 [id number] learning about tuberculosis (TB) Not available 05/09/2022 11:20:22 child safety: care instructions [email or web address] Not available 05/09/2022 11:20:22 Staying healthy can help you cope with stress or depression. Here are some tips to keep you healthy. *Get at least 30 minutes of exercise on most days of the week. Walking is a good choice. You also may want to do other activities, such as running, swimming, cycling, or playing tennis or team sports. *Try cutting back on time spent on TV or video games each day. *Munch at least 5 helpings of fruits and veggies. A helping is a piece of fruit or cup of vegetables. *Cut back to 1 can or small cup of soda or juice drink a day. Try water and milk instead. Cheese, yogurt, milk have at least 3 cups a day to get the calcium you need. *The decision to have sex is a serious one that only you can make. Not having sex is the best way to prevent HIV, STIs (sexually transmitted infections), and . *If you do choose to have sex, condoms and control can increase your chances of protection against STIs and . *Avoid drugs, cigarettes and alcohol, always wear a seat belt when riding in a car, never swim alone, wear helmets when appropriate *Talk to an adult you feel comfortable with. Confide in this person and ask for his or her advice. This can be a parent, a teacher, a head athletic trainer/strength coach, or someone else you trust. Healthy ways to deal with stress: *Get 9 to 10 hours of sleep every night. *Eat healthy meals. *Go for a long walk. *Dance. Shoot hoops. Go for a bike ride. Get some exercise. *Talk with someone you trust. *Laugh, cry, sing, or write in a journal. [email or web address] Not available 05/09/2022 11:17:54 When should you call for help? *Call anytime you think you may need emergency care. For example, call if: *You feel life is meaningless or think about killing yourself. *Talk to a counselor or doctor if any of the following problems lasts for 2 or more weeks. *You feel sad a lot or cry all the time. *You have trouble sleeping or sleep too much. *You find it hard to concentrate, make decisions, or remember things. *You change how you normally eat. *You feel guilty for no reason. *RTO in a year for Wellness exam and every year afterwards *Dental visits every 6 months and eye exams every 2 years Not available 05/09/2022 11:17:59 06/27/2022 [id number] *Increase fluids , stay well hydrated *Wash hands frequently *Return to office if symptoms worsen or persist Not available 06/27/2022 11:48:07 *take Rx as directed [email or web address] Not available 06/27/2022 11:48:23 09/11/2022 [id number] Plan for next steps: take Rx as directed [email or web address] Not available 09/11/2022 11:29:15 Due to the natur e of telemedicine the ability to do a physical assessment was limited to what can be accomplished by patient directed video conferencing. Those limits are understood by the patient and myself. Impression is based on history, available information and physical findings accomplished with video assistance. Chronic disease/problem list/medication list reviewed and updated where indicated. Discussed diagnosis, plan including risks, benefits and options of treatment. PMH, FHx, SHx, Surgical Hx and preventive care review were addressed as documented today as part of this visit. Medication list was reviewed and adjusted as indicated. Medication requiring a refill was addressed. Risk and benefits of any new medications were discussed and all questions answered. Advised to call for new, worsening or persistent symptoms. Level of patient risk was of low complexity due to the documented nature of presentation, the information assessment required and the nature of the development of an evaluation and treatment plan as documented. Not available 09/11/2022 11:29:19 09/26/2022 [id number] *CT ordered [email or web address] Not available 15:00:48 *will RTO for labs *XR ok [email or web address] Not available 09/26/2022 15:00:41 Reason for Referral None Reported. Results Created Date Observation Date Name Description Value Unit Range Abnormal Flag Note LastModifiedBy Organization Detail LastModifiedTime 05/11/2005/11/2022 PPD (cinda fied prote in deriv ative ), skin test TB negati ve Not Available [address] [place], [address], 05/09/2022 11:07:31 05/11/20 22 05/11/2022 PPD (cinda fied prote in deriv ative ), skin test mm of induration 0 Not Available [address] [place], [address], 05/09/2022 11:07:31 06/27/20 22 06/27/2022 rapid flu (A+B) Flu positi ve Not Available [address] [place], [address], 06/27/2022 10:55:01 06/27/20 22 06/27/2022 rapid flu (A+B) Type A Not Available [address] [place], [address], 06/27/2022 10:55:01 06/27/20 22 06/27/2022 rapid strep group A, throa t Strep negati ve Not Available [address] [place], [address], 06/27/2022 09:04:01 06/27/2006/27/2022 rapid strep group A, throa t Culture No Not Available [facility] [address] [place], [address], 06/27/2022 09:04:01 09/26/19 23 09/28/2022 CBC WITH DIFFE RENTI AL/PL ATELE T WBC 5.1 x10e3 /uL 3.4-10 .8 Not Available [facility] ([facility]) [address] [facility], [place], [address], 09/28/2022 09:38:41 09/26/19 23 09/28/2022 CBC WITH DIFFE RENTI AL/PL ATELE T RBC 4.22 x10e6 /uL 3.77-5 .28 Not Available [facility] ([facility]) [address] [facility], [place], [address], 09/28/2022 09:38:41 09/26/19 23 09/28/2022 CBC WITH DIFFE RENTI AL/PL ATELE T hemoglobin 13.2 g/dL 11.1-1 5.9 Not Available [facility] ([facility]) [address] [facility], [place], [address], 09/28/2022 09:38:41 09/26/19 23 09/28/2022 CBC WITH DIFFE RENTI AL/PL ATELE T hematocrit 38.2 % 34.0-4 6.6 Not Available [facility] ([facility]) [address] [place], [address], 09/28/2022 09:38:41 09/26/19 23 09/28/2022 CBC WITH DIFFE RENTI AL/PL ATELE T MCV 91 fL 79-97 Not Available [facility] ([facility]) [address] [facility], [place], [address], 09/28/2022 09:38:41 09/26/19 23 09/28/2022 CBC WITH DIFFE RENTI AL/PL ATELE T MCH 31.3 pg 26.6-3 3.0 Not Available [facility] ([facility]) [address] [facility], [place], [address], 09/28/2022 09:38:41 09/26/19 23 09/28/2022 CBC WITH DIFFE RENTI AL/PL ATELE T MCHC 34.6 g/dL 31.5-3 5.7 Not Available [facility] ([facility]) [address] [facility], [place], [address], 09/28/2022 09:38:41 09/26/19 23 09/28/2022 CBC WITH DIFFE RENTI AL/PL ATELE T RDW 12.3 % 11.7-1 5.4 Not Available [facility] ([facility]) [address] [facility], [place], [address], 09/28/2022 09:38:41 09/26/19 23 09/28/2022 CBC WITH DIFFE RENTI AL/PL ATELE T platelets 210 x10e3 /uL 150-45 0 Not Available [facility] ([facility]) [address] [facility], [place], [address], 09/28/2022 09:38:41 09/26/19 23 09/28/2022 CBC WITH DIFFE RENTI AL/PL ATELE T neutrophils 54 % not estab. Not Available [facility] ([facility]) [address] [facility], [place], [address], 09/28/2022 09:38:41 09/26/19 23 09/28/2022 CBC WITH DIFFE RENTI AL/PL ATELE T lymphs 33 % not estab. Not Available [facility] ([facility]) [address] [facility], [place], [address], 09/28/2022 09:38:41 09/26/19 23 09/28/2022 CBC WITH DIFFE RENTI AL/PL ATELE T monocytes 10 % not estab. Not Available [facility] ([facility]) [address] [facility], [place], [address], 09/28/2022 09:38:41 09/26/19 23 09/28/2022 CBC WITH DIFFE RENTI AL/PL ATELE T eos 3 % not estab. Not Available [facility] ([facility]) [address] [facility], [place], [address], 09/28/2022 09:38:41 09/26/19 23 09/28/2022 CBC WITH DIFFE RENTI AL/PL ATELE T basos 0 % not estab. Not Available [facility] ([facility]) [address] [facility], [place], [address], 09/28/2022 09:38:41 09/26/19 23 09/28/2022 CBC WITH DIFFE RENTI AL/PL ATELE T immature cells PHOTO LAB SPECIALIST Not Available [facility] ([facility]) [address] [place], [address], 09/28/2022 09:38:41 09/26/19 23 09/28/2022 CBC WITH DIFFE RENTI AL/PL ATELE T neutrophils (absolute) 2.8 x10e3 /uL 1.4-7. 0 Not Available [facility] ([facility]) [address] [place], [address], 09/28/2022 09:38:41 09/26/19 23 09/28/2022 CBC WITH DIFFE RENTI AL/PL ATELE T lymphs (absolute) 1.7 x10e3 /uL 0.7-3. 1 Not Available [facility] ([facility]) [address] [place], [address], 09/28/2022 09:38:41 09/26/19 23 09/28/2022 CBC WITH DIFFE RENTI AL/PL ATELE T monocytes(ab solute) 0.5 x10e3 /uL 0.1-0. 9 Not Available [facility] ([facility]) [address] [facility], [place], [address], 09/28/2022 09:38:41 09/26/19 23 09/28/2022 CBC WITH DIFFE RENTI AL/PL ATELE T eos (absolute) 0.2 x10e3 /uL 0.0-0. 4 Not Available [facility] ([facility]) [address] [facility], [place], [address], 09/28/2022 09:38:41 09/26/19 23 09/28/2022 CBC WITH DIFFE RENTI AL/PL ATELE T baso (absolute) 0.0 x10e3 /uL 0.0-0. 2 Not Available [facility] ([facility]) [address] [facility], [place], [address], 09/28/2022 09:38:41 09/26/19 23 09/28/2022 CBC WITH DIFFE RENTI AL/PL ATELE T immature granulocytes 0 % not estab. Not Available [facility] ([facility]) [address] [facility], [place], [address], 09/28/2022 09:38:41 09/26/19 23 09/28/2022 CBC WITH DIFFE RENTI AL/PL ATELE T immature grans (abs) 0.0 x10e3 /uL 0.0-0. 1 Not Available [facility] ([facility]) [address] [place], [address], 09/28/2022 09:38:41 09/26/19 23 09/28/2022 CBC WITH DIFFE RENTI AL/PL ATELE T NRBC PHOTO LAB SPECIALIST Not Available [facility] ([facility]) [address] [place], [address], 09/28/2022 09:38:41 09/26/19 23 09/28/2022 CBC WITH DIFFE LOUISE AL/PL CHARLENE T hematology comments: PHOTO LAB SPECIALIST Not Available [facility] ([facility]) [address] [facility], [place], [address], 09/28/2022 09:38:41 09/26/19 23 09/28/2022 COMP. METAB OLIC PANEL (14) glucose 87 mg/dL 70-99 Not Available [facility] ([facility]) [address] [facility], [place], [address], 09/28/2022 09:38:42 09/26/19 23 09/28/2022 COMP. METAB OLIC PANEL (14) BUN 7 mg/dL 6-20 Not Available [facility] ([facility]) [address] [facility], [place], [address], 09/28/2022 09:38:42 09/26/19 23 09/28/2022 COMP. METAB OLIC PANEL (14) creatinine 0.81 mg/dL 0.57-1 .00 Not Available [facility] ([facility]) [address] [place], [address], 09/28/2022 09:38:42 09/26/19 23 09/28/2022 COMP. METAB OLIC PANEL (14) eGFR 108 mL/mi n/1.7 3 >59 Not Available [facility] ([facility]) [address] [place], [address], 09/28/2022 09:38:42 09/26/19 23 09/28/2022 COMP. METAB OLIC PANEL (14) BUN/creatini ne ratio 9 9-23 Not Available [facility] ([facility]) [address] [place], [address], 09/28/2022 09:38:42 09/26/19 23 09/28/2022 COMP. METAB OLIC PANEL (14) sodium 139 mmol/ L 134-14 4 Not Available [facility] ([facility]) [address] [facility] [place], [address], 09/28/2022 09:38:42 09/26/19 23 09/28/2022 COMP. METAB OLIC PANEL (14) potassium 4.7 mmol/ L 3.5-5. 2 Not Available [facility] ([facility]) [address] [facility] [place], [address], 09/28/2022 09:38:42 09/26/19 23 09/28/2022 COMP. METAB OLIC PANEL (14) chloride 104 mmol/ L 96-106 Not Available [facility] ([facility]) [address] [facility] [place], [address], 09/28/2022 09:38:42 09/26/19 23 09/28/2022 COMP. METAB OLIC PANEL (14) carbon dioxide, total 23 mmol/ L 20-29 Not Available [facility] ([facility]) [address] [facility] [place], [address], 09/28/2022 09:38:42 09/26/19 23 09/28/2022 COMP. METAB OLIC PANEL (14) calcium 9.4 mg/dL 8.7-10 .2 Not Available [facility] ([facility]) [address] [facility] [place], [address], 09/28/2022 09:38:42 09/26/19 23 09/28/2022 COMP. METAB OLIC PANEL (14) protein, total 6.6 g/dL 6.0-8. 5 Not Available [facility] ([facility]) [address] [facility] [place], [address], 09/28/2022 09:38:42 09/26/19 23 09/28/2022 COMP. METAB OLIC PANEL (14) albumin 4.1 g/dL 3.9-5. 0 Not Available [facility] ([facility]) [address] [facility], [place], [address], 09/28/2022 09:38:42 09/26/19 23 09/28/2022 COMP. METAB OLIC PANEL (14) globulin, total 2.5 g/dL 1.5-4. 5 Not Available [facility] ([facility]) [address] [place], [address], 09/28/2022 09:38:42 09/26/19 23 09/28/2022 COMP. METAB OLIC PANEL (14) A/G ratio 1.6 1.2-2. 2 Not Available [facility] ([facility] [address] [facility] [place], [address], 09/28/2022 09:38:42 09/26/19 23 09/28/2022 COMP. METAB OLIC PANEL (14) bilirubin, total 0.4 mg/dL 0.0-1. 2 Not Available [facility] ([facility]) [address] [facility] [place], [address], 09/28/2022 09:38:42 09/26/19 23 09/28/2022 COMP. METAB OLIC PANEL (14) alkaline phosphatase 105 IU/L 42-106 Not Available [facility] ([facility]) [address] [facility] [place], [address], 09/28/2022 09:38:42 09/26/19 23 09/28/2022 COMP. METAB OLIC PANEL (14) AST (SGOT) 15 IU/L 0-40 Not Available [facility] ([place] [facility]) [address] [facility] [place], [address], 09/28/2022 09:38:42 09/26/19 23 09/28/2022 COMP. METAB OLIC PANEL (14) ALT (SGPT) 8 IU/L 0-32 Not Available [facility] ([facility]) [address] [facility] [place], [address], 09/28/2022 09:38:42 09/26/19 23 09/30/2022 URINE CULTU RE, ROUTI NE urine culture, routine Final report abnormal Not Available [facility] ([facility]) [address] [facility], [place], [address], 09/30/2022 16:35:57 09/26/19 23 09/30/2022 URINE CULTU RE, ROUTI NE result 1 Escher ichia coli abnormal Cefaz renee with an JENAE <=16 predi cts susce ptibi lity to the oral agent s cefac barrie, cefdi lars, cefpo doxim e, cefpr ozil, cefur oxime , cepha lexin , and lorac arbef when used for thera py of uncom plica nito urina ry tract infec tions due to E. coli, Klebs iella pneum oniae , and Prote us mirab ilis. Multi -Drug Resis tant Organ ism 50,00 0-100 ,000 colon y formi ng units per mL Not Available [facility] ([facility]) [address] [facility], [place], [address], 09/30/2022 16:35:57 09/26/19 23 09/30/2022 URINE CULTU RE, ROUTI NE antimicrobia l susceptibili ty Commen t S = Susce ptibl e; I = Inter media te; R = Resis tant P = Posit rajeev; N = Negat rajeev MICS are expre ssed in micro grams per mL Antib iotic RSLT# 1 RSLT# 2 RSLT# 3 RSLT# 4 Amoxi cilli n/Cla vulan ic Acid I =16 Ampic illin R>=32 Cefaz renee S =8 Cefep priti S<=0. 12 Ceftr iaxon e S<=0. 25 Cefur oxime S<=1 Cipro floxa shae R>=4 Ertap enem S<=0. 12 Genta micin S<=1 Imipe nem S<=0. 25 Levof loxac in R>=8 Merop enem S<=0. 25 Nitro furan toin S<=16 Piper acill in/Ta zobac esquivel R>=12 8 Tetra cycli ne R>=16 Tobra mycin S<=1 Trime thopr im/Juarez lfa R>=32 0 Not Available [facility] ([facility]) [address] [facility], [place], [address], 09/30/2022 16:35:57 09/26/19 23 09/27/2022 SPECI MEN STATU S REPOR T specimen status report TNP Test not perfo rmed. No speci men recei saray. TEST: [id number] CBC With Diffe renti al/Pl atele t 84686 0 Comp. Metab olic Panel (14) Not Available [facility] ([facility]) [address] [facility], [place], [address], 09/30/2022 16:35:57 09/26/19 23 09/26/2022 urina lysis , dipst ick Leukocytes Negati ve Not Available [address] [place], [address], 09/26/2022 10:16:55 09/26/19 23 09/26/2022 urina lysis , dipst ick Nitrite negati ve Not Available [address] [place], [address], 09/26/2022 10:16:55 09/26/19 23 09/26/2022 urina lysis , dipst ick Urobilinogen .2 Not Available [facility] [address] [place], [address], 09/26/2022 10:16:55 09/26/19 23 09/26/2022 urina lysis , dipst ick Protein 30 Not Available [address] [place], [address], 09/26/2022 10:16:55 09/26/19 23 09/26/2022 urina lysis , dipst ick pH 8.5 Not Available [address] [place], [address], 09/26/2022 10:16:55 09/26/19 23 09/26/2022 urina lysis , dipst ick Blood Small Not Available [address] [place], [address], 09/26/2022 10:16:55 09/26/19 23 09/26/2022 urina lysis , dipst ick Specific [place] 1.020 Not Available [address] [place], [address], 09/26/2022 10:16:55 09/26/19 23 09/26/2022 urina lysis , dipst ick Ketone Negati ve Not Available [address] [place], [address], 09/26/2022 10:16:55 09/26/19 23 09/26/2022 urina lysis , dipst ick Bilirubin Negati ve Not Available [address] [place], [address], 09/26/2022 10:16:55 09/26/19 23 09/26/2022 urina lysis , dipst ick Glucose Negati ve Not Available [address] [place], [address], 09/26/2022 10:16:55 09/26/19 23 09/26/2022 urina lysis , dipst ick Appearance Clear Not Available [address] [place], [address], 09/26/2022 10:16:55 09/26/19 23 09/26/2022 urina lysis , dipst ick Color Yellow Not Available [facility] [address] [place] [address] Rd., [place], [address], 09/26/2022 10:16:55 09/26/19 23 09/26/2022 XR, chest , 2 view No observ ation record ed. [email or web address] [facility] [address] [place], [address], 09/26/2022 14:29:23 09/26/19 23 09/26/2022 XR, chest , 2 view No observ ation record ed. [email or web address] [facility] [address] [place], [address], 09/26/2022 14:29:24 10/02/[address], abdom en, w/ contr ast No observ ation record ed. [email or web address] [place] [address], [place], [address], 10/03/2022 11:47:54 Result Notes None recorded. Problems Name Problem SNOMED Code Status Onset Date Resolution Date Notes Provider Name and Address Organization Details Recorded Time Suspected COVID-19 643247168 Completed 12/06/2020 Removal Reason: Problem added by user [email or web address] from the COVID-19 watch flag Cielo Oreilly, JUAN M [address], [place], [address], [place] - [facility] 2 11:12:48 Acne 35356208 Active 2019 Jody Corado RN [address], [place], [address], [facility] - [facility] 0 16:54:10 Asthma 031276910 Active 2019 Cielo Oreilly APRN [address], [place], [address], [place] - [facility] 2 11:12:47 Scoliosis deformity of spine 005664260 Active 2021 Cielo Oreilly, BUSINESS CONTINUITY ANALYST [address], [place], [address], [place] - [facility] 2 11:18:21 Influenza caused by Influenza A virus 210496762 Active 2021 Cielo Oreilly, BUSINESS CONTINUITY ANALYST [address], [place], [address], [place] - [facility] 2 12:18:21 Pharyngit is 972580431 Active 2022 Marques suazo, FRANCISCO JAVIER - [facility] 3 09:48:29 Chest wall pain 988514950 Active 2022 Marques suazo, FRANCISCO JAVIER - [facility] 3 09:48:34 Left upper quadrant pain 434893326 Active 2022 Cielo Oreilly, BUSINESS CONTINUITY ANALYST [address], [place], [address], [place] [facility] 14:12:39 Acute urinary tract infection 078068962 Active 2022 Marques suazo, FRANCISCO JAVIER - [facility] 3 10:26:20 Urine culture - E. coli 437469565 Active 2022 Cielo Oreilly, BUSINESS CONTINUITY ANALYST [address], [place], [address], [place] [facility] 3 10:33:30 Problem Notes None recorded. Procedures Surgical History Date Name Laterality Status Provider Name and Address Organization Details Recorded Time 0 Systolic B/P less than 130 mm Hg completed Crystal Raulito [place] - [facility] 06/02/2020 13:42:29 0 Diastolic B/P less than 80 mm Hg completed Crystal Raulito [place] - [facility] 06/02/2020 13:42:31 0 Systolic B/P less than 130 mm Hg completed Crystal Raulito [place] [facility] 02/08/2020 10:55:01 0 Diastolic B/P less than 80 mm Hg completed Crystal Raulito [place] [facility] 02/08/2020 10:55:04 Imaging Results None recorded. Procedure Notes None recorded. Medical Equipment None Reported. Allergies Allergen ID Allergen Name Allergen Category Reaction Reaction Severity Criticality Documentation Date Start Date Code Code System Note Provider Name and Address Organization Details Recorded Time 298185 Omnicef medicatio n rash moderate Not available 11/03/2019 18543 RxNorm Jody Corado RN [address], [place], [address], [place] - [facility] 0 16:53:23 Medications Name Sig Start Date Stop Date [...] Take 1 tablet by mouth once daily 2022 active Not Available Not Available Not Avai lable nitrofurant oin monohydrate /macrocryst als 100 mg capsule Take 1 capsule every 12 hours by oral route as directed for 10 days. active Not Available Not Available No t Available Vitals Date Recorded Body height Provider Name an d Address Organization Details Last Updated DateTime 09/11/2022 167.64 cm [facility] 09/11 09:48:41 Date Recorded Body height Body mass index (BMI) Body mass index (BMI) [Percentile] Per age and sex Body weight Body temperature Heart rate Respiratory rate Oxygen saturation Oxygen saturation in Arterial blood by Pulse oximetry Pain severity - 0-10 verbal numeric rating [Score] - Reported Provider Name and Address Organization Details Last Updated DateTime 3 167.64 cm 22.6 kg/m2 62 % 26428.9 3 g 98.4 [degF] 88 /min 17 /min 96 % 96 % 0 [facility] 09:50:13 Date Recorded Body height Body mass index (BMI) Body mass index (BMI) [Percentile] Per age and sex Body weight Body temperature Heart rate Oxygen saturation Oxygen saturation in Arterial blood by Pulse oximetry Respiratory rate Pain severity - 0-10 verbal numeric rating [Score] - Reported Systolic And Diastolic Provider Name and Address Organization Details Last Updated DateTime 2 167.64 cm 22.3 kg/m2 62 % 38588.7 5 g 98.5 [degF] 68 /min 98 % 98 % 18 /min 5 112/65 mm[Hg] Dayana Goldsmithnikita [place] - [facility] 11:48:53 Date Recorded Body height Body mass index (BMI) [Percentile] Per age and sex Body mass index (BMI) Body weight Body temperature Heart rate Respiratory rate Oxygen saturation Oxygen saturation in Arterial blood by Pulse oximetry Pain severity - 0-10 verbal numeric rating [Score] - Reported Systolic And Diastolic Provider Name and Address Organization Details Last Updated DateTime 2 167.64 cm 63 % 22.6 kg/m2 73420.9 3 g 98.6 [degF] 82 /min 18 /min 97 % 97 % 0 110/70 mm[Hg] Cornelius Camposlavelle [place] - [facility] 11:14:10 Date Recorded Body height Body mass index (BMI) Body mass index (BMI) [Percentile] Per age and sex Body weight Body temperature Heart rate Respiratory rate Oxygen saturation Oxygen saturation in Arterial blood by Pulse oximetry Pain severity - 0-10 verbal numeric rating [Score] - Reported Systolic And Diastolic Provider Name and Address Organization Details Last Updated DateTime 2 167.64 cm 22.4 kg/m2 61 % [address]695.3 4 g 98.6 [degF] 90 /min 18 /min 97 % 97 % 2 112/80 mm[Hg] Marques Uri [place] - [facility] 2 10:55:35 Social History Question Answer Notes LastModified by Organizat ion Details LastModified Time Tobacco Smoking Status Never Smoker Jody Corado RN [address], [place], [address], [place] [facility] 11/03/2019 16:56:10 Animal Exposure? Yes Dog Cat Cows Rabbits Information not available 11/03/2019 Are You Blind Or Do You Have Difficulty Seeing? No [email or web address] Information not available 05/09/2022 What Is Your Level Of Caffeine Consumption? 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 No Information not available 11/03/2019 In The 14 Days Before Symptom Onset, Have You Had Close Contact With A Laboratory-confi rmed COVID-19 While That Case Was Ill? No [email or web address] Information not available 05/09/2022 In The 14 Days Before Symptom Onset, Have You Had Close Contact With A Person Who Is Under Investigation For COVID-19 While That Person Was Ill? No Information not available 05/09/2022 Have You Been To An Area Known To Be High Risk For COVID-19? No Information not available 05/09/2022 Are You Deaf Or Do You Have Serious Difficulty Hearing? No Information not available 05/09/2022 What Type Of Diet Are You Following? REGULAR Information not available 11/03/2019 Does Family Ever Have Difficulty Making Ends Meet At The End Of The Month? No [email or web address] Information not available 06/15/2020 What Is The Highest Grade Or Level Of School You Have Completed Or The Highest Degree You Have Received? [id number] [email or web address] Information not available 05/09/2022 Have There Been Any Changes To Your Family Or Social Situation? No Information not available 11/03/2019 What Is The Fluoride Status Of Your Home? Fluoridated [email or web address] Information not available 06/15/2020 Are There Any Guns Present In Your Home? Yes Reviewed Safety Measures Information not available 11/03/2019 What Is Your Home Situation? Both Parents Information not available 11/03/2019 Do You Use Insect Repellent Routinely? Yes Information not available 06/15/2020 Is Mother Hep C Positive? No [email or web address] Information not available 06/15/2020 What Was The Date Of Your Most Recent Tobacco Screening? 06/27/2022 [email or web address] Information not available 06/27/2022 Family Has Moved Frequently/lived With Others Due To Finances Within The Last Year? No Information not available 11/03/2019 What Is Your Parents' Marital Status? Information not available 11/03/2019 Pool Exposure No Information not available 11/03/2019 What Is Your Relationship Status? Single [email or web address] Information not available 05/09/2022 What Is The Name Of Your School? [employer] Information not available 11/03/2019 Do You Use Your Seat Belt Or Car Seat Routinely? Yes Information not available 06/15/2020 Are You Sexually Active? No Information not available 11/03/2019 Do You Have Any Siblings? 2 Information not available 11/03/2019 Do You Have Smoke And Carbon Monoxide Detectors In Your Home? Yes Information not available 11/03/2019 Are You Passively Exposed To Smoke? No Information not available 11/03/2019 How Much Tobacco Do You Smoke? No [email or web address] Information not available 06/15/2020 What Types Of Sporting Activities Do You Participate In? None Information not available 11/03/2019 Do You Use Sunscreen Routinely? Yes [email or web address] Information not available 06/15/2020 Do You Have Difficulty Walking Or Climbing Stairs? No [email or web address] Information not available 05/09/2022 Year In School 10 Informatio n not available 11/03/2019 Are You Currently In School? No [email or web address] Information not available 05/09/2022 Sex: Female Functional Status Question Answer Note LastModified by Organizat ion Details LastModified Time Do you or have you ever used smokeless tobacco? Never used smokeless tobacco [email or web address] Information not available 06/15/2020 Are you currently employed? Yes [email or web address] Information not available 05/09/2022 Do you have transportation difficulties? No [email or web address] Information not available 05/09/2022 Are you able to care for yourself? Yes [email or web address] Information n ot available 05/09/2022 Do you have difficulty dressing or bathing? No [email or web address] Information not available 05/09/2022 Do you or have you ever used e-cigarettes or vape? Never used electronic cigarettes Information not available 11/03/2019 What is your exercise level? Occasional Information not available 11/03/2019 Do you use any illicit or recreational drugs? No [email or web address] Information not available 05/09/2022 Do you or have you ever used any other forms of tobacco or nicotine? No [email or web address] Information not available 05/09/2022 What is your level of alcohol consumption? None [email or web address] Information not available 05/09/2022 Are you able to walk? YESWOREST [email or web address] Information not available 05/09/2022 Do you have difficulty doing errands alone? 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 [id number] [email or web address] Information not available 05/09/2022 Do you have difficulty concentrating, remembering or making decisions? No [email or web address] Information no t available 05/09/2022 Are you or have you been involved with bullying? No Information not available 11/03/2019 Family History Relationship Description Onset Age of this Age Resolved Age Notes LastModified by Organization Details LastModified Time Maternal Grandmother Diabetes mellitus Not available 2019 16:55:36 Maternal Grandmother Hypertensive disorder Not available 2019 16:55:47 Paternal Grandmother Diabetes mellitus Not available 2019 16:55:54 Paternal Grandfather Heart disease Not available 2019 16:56:02 Medical History Condition Response Acne Y Gynecological History Statement/Question Response Flow Moderate Frequency of Cycle (Q days) 28 Date of LMP 04/30/2022 Sexually Active? N On BCP's at Conception? N Menses Monthly Y Duration of Flow (days) 7 Current Control Method BCPs Age at Menarche 11 LMP Approximate Obstetrics History GPAL:G 0 P 0 0 0 0 Immunizations Vaccine Type Date Status Note Provider Nam e and Address Organization Details Recorded Time meningococcal ACWY, unspecified formulation 5 completed Not Available [facility] 09/26/2022 09:36:45 MMR 5 completed Kimberly Negr[place] [facility] 02/08/2020 11:43:51 MMR 8 completed Kimber[place]gr[place] [facility] 02/08/2020 11:44:05 Tdap 5 completed Kimberly [place]gr[place] [facility] 02/08/2020 11:44:55 DTaP 8 completed Not Available [facility] 09/26/2022 09:36:46 Hep B, unspecified formulation 4 completed Crystal December [place] [facility] 03/16/2020 08:19:15 Hep B, unspecified formulation 4 completed Crystal December [place] [facility] 03/16/2020 08:20:08 Hep B, unspecified formulation 4 completed Crystal December [place] [facility] 03/16/2020 08:20:24 Hep B, unspecified formulation 4 completed Not Available [facility] 09/26/2022 09:36:46 HPV, unspecified formulation 5 completed Not Available [facility] 09/26/2022 09:36:45 Influenza, split virus, quadrivalent, preservative 7 completed Marques Grew[place] [facility] 06/27/2022 10:56:18 Influenza, split virus, quadrivalent, preservative 8 completed Marques [place]rew[place] [facility] 06/27/2022 10:56:17 IPV 4 completed Crystal December [place] [facility] 03/16/2020 08:28:27 IPV 4 completed Crystal December [place] [facility] 03/16/2020 08:28:36 pneumococcal, unspecified formulation 4 completed Not Available [facility] 09/26/2022 09:36:45 pneumococcal, unspecified formulation 4 completed Not Available [facility] 09/26/2022 09:36:46 pneumococcal, unspecified formulation 4 completed Not Available [facility] 09/26/2022 09:36:45 pneumococcal, unspecified formulation 5 completed Not Available [facility] 09/26/2022 09:36:45 varicella 5 completed Crystal December [place] [facility] 03/16/2020 08:30:43 varicella 8 completed [place] December [place] [facility] 03/16/2020 08:30:54 HPV9 7 completed Marques [place] [facility] 06/27/2022 10:56:16 polio, unspecified formulation 4 completed Marques [place] [facility] 06/27/2022 10:56:16 meningococcal MCV4P 5 completed Marques [place] [facility] 06/27/2022 10:56:16 HPV, quadrivalent 5 completed Mar[place] [facility] 06/27/2022 10:56:16 Hib (PRP-OMP) 5 completed Marques [place] [facility] 06/27/2022 10:56:16 Hep A, ped/adol, 2 dose 8 completed Marques [place] [facility] 06/27/2022 10:56:16 polio, unspecified formulation 8 completed Mar[place] [facility] 06/27/2022 10:56:17 pneumococcal conjugate PCV 7 5 completed Mar[place] [facility] 06/27/2022 10:56:17 DTaP-Hep B-IPV 4 completed Mar[place] [facility] 06/27/2022 10:56:17 Hib (PRP-OMP) 4 completed Mar[place] [facility] 06/27/2022 10:56:17 DTaP, unspecified formulation 4 completed Marques [place] [facility] 06/27/2022 10:56:17 Influenza, split virus, quadrivalent, preservative 0 completed Marques [place] [facility] 06/27/2022 10:56:17 meningococcal MCV4P 0 completed Mar[place] [facility] 06/27/2022 10:56:17 pneumococcal conjugate PCV 7 4 completed Mar[place] [facility] 06/27/2022 10:56:17 Hib-Hep B 4 completed Mar[place] [facility] 06/27/2022 10:56:17 Tdap 0 completed Mar[place] [facility] 06/27/2022 10:56:17 HPV9 5 completed Marques suazo, [facility] 06/27/2022 10:56:17 DTaP, unspecified formulation 4 completed Marques suazo, [facility] 06/27/2022 10:56:17 Hep A, ped/adol, 2 dose 7 completed Marques suazo, [facility] 06/27/2022 10:56:17 Influenza, split virus, quadrivalent, preservative 6 completed Marques suazo, [facility] 06/27/2022 10:56:17 pneumococcal conjugate [facility] 7 [facility]27[facility]22 10:56:17 [facility]P, unspecified formulation 5 [facility] 06/27/2022 10:56:17 pneumococcal conjugate PCV 7 4 [facility] 06/27/2022 10:56:17 Influenza, split virus, quadrivalent, preservative 6 [facility] 06/27/2022 10:56:17 Influenza, split virus, trivalent, preservative 5 [facility] 10:56:17 Past Encounters Encounter ID Performer Location Encounter Start Date Encounter Closed Date Diagnosis/Indication Diagnosis SNOMED-CT Code Diagnosis ICD10 Code Diagnosis Note [id number] Kimberly Negron APRN [place] [address] [place] [address] 11/03/2019 16:19:43 11/24/2019 09:35:34 Inflammatory acne 882614488 L70.8 [id number] Kimberly Negron APRN [facility] [address] [place] [address] 02/08/2020 10:43:43 02/08/2020 12:21:54 Well child visit 396533560 Z00.129 Active or passive immunization 285024623 Z23 Dietary ma nagement surveillance 856406580 Z71.3 Exercises education, guidance, and counseling 483817008 Z71.82 Depression screening 171 236302 Z13.89 Body mass index 20-24 - normal 028216977 Z68.21 Normal bod y mass index 50121179 Z68.52 On examina tion - general eye examination 499990308 Z01.00 Venereal d isease screening 945077650 Z11.8 [id number] Kimberly Negron[address] [place] [address] 06/02/2020 13:07:27 06/02/2020 13:45:00 Administration of influenza vaccine 90563306 Z23 Asthma 529999313 J45.90 9 [id number] Cielo Oreilly[address] [place] [address] 06/15/2020 09:54:02 06/15/2020 10:26:28 Upper respiratory infection 19751024 J06.9 Pharyngitis 632683000 J0 2.9 Acute sinusitis 20587722 J01.90 [id number] Cielo Oreilly[address] [place] [address] 10/24/2020 10:50:42 10/24/2020 11:07:52 Tuberculosis screening 343855135 Z11.1 [id number] Cielo Oreilly[address] [place] [address] 11/09/2020 10:54:30 11/09/2020 11:24:52 Tuberculosis screening 574976440 Z11.1 [id number] Cielo Oreilly[address] [place] [address] 11/29/2020 09:13:19 11/29/2020 09:26:06 Viral screening 209923648 Z11.52 [id number] Kimberly Negron[address] [place] [address] 12/01/2020 15:39:05 12/01/2020 16:41:54 Acne 00500307 L70.9 Intoleranc e to lactose 121463981 E73.9 [id number] Kimberly Negron [address] [place] [address] 05/29/2021 09:43:41 05/29/2021 10:40:35 Asthma 360902712 J45.909 Acne 77856057 L70.9 Well child visit 8551072 09 Z00.129 Normal bod y mass index 97115224 Z68.52 Dietary ma nagement surveillance 252562001 Z71.3 Exercises education, guidance, and counseling 235883762 Z71.82 Depression screening 171 457477 Z13.89 On examina tion - general eye examination 309521780 Z01.00 Venereal d isease screening 237962115 Z11.8 Uses oral contraception 4168854 Z30.41 Viral screening 18387780 4 Z11.52 [id number] Kimberly Negron [address] [place] [address] 09/05/2021 14:46:53 09/05/2021 16:51:17 Viral screening 564000038 Z11.52 Acute bronchitis 1201878 2 J20.9 [id number] Isabella Beckett [address] [place] [address] 11/24/2021 11:44:00 11/24/2021 12:17:35 Body mass index 20-24 - normal 762158186 Z68.22 Cellulitis of toe of left foot 5341836689 5477034 L03.032 Uses oral contraception 2071094 Z30.41 needs G/C urine next visit [id number] Cielo Oreilly [address] [place] [address] 05/09/2022 11:00:31 05/09/2022 11:22:13 Tuberculosis screening 923154265 Z11.1 Well child visit 7231008 09 Z00.121 Safety education 3477510 04 Z71.9 Normal weight 31202620 Z 68.52 Diet education 37403154 Z71.3 Exercises education, guidance, and counseling 218072739 Z71.82 SARS-CoV-2 mRNA vaccine declined 1197925121 Z28.21 Scoliosis deformity of spine 076949672 M41.9 Depression screening 171 727337 Z13.31 History an d physical examination, pre-employment 023453925 Z02.1 [id number] Cielo Oreilly[address] [place] [address] 06/27/2022 10:39:02 06/27/2022 11:17:53 Pharyngitis 843163263 J02.9 Intermittent fever 26289 000 R50.9 Influenza caused by Influenza A virus 413875450 J09.X2 Asthma 287101378 J45.90 9 [id number] Cielo Oreilly[address] [place] [address] 09/11/2022 09:40:21 09/11/2022 09:52:13 Pharyngitis 869976002 J02.9 Acute sinusitis 43460564 J01.90 [id number] Cielo Oreilly[address] [place] [address] 09/26/2022 09:35:58 09/26/2022 10:28:32 Chest wall pain 563859753 R07.89 LUQ region Urine sent for culture 232954753 Z75.2 Left upper quadrant pain 621014410 R10.12 with soft tissue prominence Health Concerns Section Related Observation LastModified by Organization Detai ls LastModified Time None Recorded Concern Status LastModified by Organization Details LastModified Time None Recorded Advance Directives Directive None Recorded Payers Insurance Date Sequence Insurance Name Policy Number Policy Girard Covered Member ID Girard Member ID Guarantor Name 2022 1 [facility] ([facility] [id number] Je Webber [id number] Jenise Webber Notes Date Note Type Note Provider Name and Address Organization Details Recorded Time 11/24/2021 text/html ROS as noted in the HPI Patient presents in office with mother. Patient reports left big toe pain x 2 weeks. Pain is 5/10. Toe started swelling last week. Has been soaking in Epsom salt which helps some. Denies trauma. Denies drainage from toe and fever. Isabella Beckett, BUSINESS CONTINUITY ANALYST [address], [place], [address], [place] [facility] 11/27/2021 08:45:51 05/09/2022 text/html TB test in office; WC, denies concerns Cielo Larissa Leonardo Melaratriny, BUSINESS CONTINUITY ANALYST [address], [place], [address], [place] [facility] 05/09/2022 11:21:14 06/27/2022 text/html ROS as noted in the HPI pt in for concern of sore throat, fever yesterday of 103, patient states asthma has been stable and just needs a refill on inhaler Cielolara Oreilly, BUSINESS CONTINUITY ANALYST [address], [place], [address], [place] [facility] 06/27/2022 12:19:21 09/11/2022 text/html ROS as noted in the HPI telemedicine visit pt concern of runny nose started on 09/01/22, now ear pain, congestion, tried OTC medication for sinus , congestion, but wanted to see about medicaton to clear it up. denies fever. Cielo Larissa Oreilly, BUSINESS CONTINUITY ANALYST [address], [place], [address], [place] [facility] 09/11/2022 11:29:52 09/26/2022 text/html ROS as noted in the HPI pt in office w/ mother for concern, chest wall pain, and lump to left side of chest (LUQ region); patient states noticed prominence a couple of months ago with intermittent stabbing pains in the area, denies known injury other symptoms Cielo Larissa Oreilly, BUSINESS CONTINUITY ANALYST [address], [place], [address], [place] [facility] 09/26/2022 15:01:37 OBGyn Episode No OBEpisode recorded.
--- OUTSIDE RECORDS SUMMARY | 2025-03-25 12:19 | XMS_ITS | Patient Health Record ---
Author Organization [facility] Address [address] [place] [address] Care Team Providers Care Data Processing Mechanic Name Role Phone Katy Farias Unavailable [phone] Zahira Carter Unavailable [phone] Reason For Referral No Information Social History Social History Sexual History: Social Info Question Answer Notes Sexual History Had sex in the past 12 months (vaginal, oral, or anal)? Yes Drugs/Alcohol: Social Info Question Answer Notes Drugs Have you used drugs other than those for medical reasons in the past 12 months? No Alcohol Screen Did you have a drink containing alcohol in the past year? Yes Points 0 Interpretation Negative Tobacco Use: Social Info Question Answer Notes Tobacco Use/Smoking Are you a former smoker Tobacco use other than smoking: Are you an other tobac co user? No Plan Of Treatment No Information
== END 2025-03-25 23:59 | disposition home or self-care (01) ==
LOC: RAD 12:12
PROVIDERS: PCP Family Medicine; Visit Provider Nurse Practitioner
DX: M41.84 Other forms of scoliosis, thoracic region (principal); M54.42 Lumbago with sciatica, left side
CPT/HCPCS: 72070; 72100

== ENCOUNTER 2025-04-13 13:41 | Outpatient (RCR) | payer BC, SELFPAY ==
--- NOTE | 2025-04-13 14:44 | HMH.PTOPEV ---
PT Outpatient Evaluation Rehab PT Outpatient Evaluation Start: 04/13/25 13:55 Freq: Status: Active Protocol: Document 04/13/25 14:01 LEXIS (Rec: 04/13/25 14:43 LEXIS [id number]) E-signed By Marge Bean, PT Outpatient Therapy Subjective History Subjective History Pt is a 19 y/o female who reports chronic mid-low back pain after falling off of her horse last July, she had a CT scan after and denies known fractures. Pt reports pain worsened last month after sitting in a stairwell awkwardly causing onset of left posterior leg numbness. Pt had thoracic and lumbar spine radiographs on 03/25/25 with findings of minimal dextroscoliosis of the thoracic spine and minimal levoscoliosis in the lumbar spine. Pt reports she has a thoracic and lumbar spine MRI scheduled for this Saturday. Pt reports she was prescribed a steroid pack and a muscle relaxer which helped initially and continues to help her sleep. Pt reports pain was improving until lifting heavy boxes last week when moving into college. Pt reports current symptoms of constant left sided low back pain and intermittent left posterior leg pain and tingling to her foot. Pt reports pain is aggravated by bending, heavy lifting, prolonged sitting, riding her horse and laying down. Pt denies b/b dysfunction. Medical History: Asthma New diagnosis of No cancer in past 12 months? Chief Complaint Pain,Paresthesia Symptom Type Sharp,Numbness,Tingling Symptoms Relieved By Heat,Prescription Meds Symptom Description Constant but Variable Level of pain today 6 (0-10) Pain scale - at its 4 best (0-10) Pain scale - at its 9 worst (0-10) Lumbopelvic Eval Posture Thoracic Spine Neutral Posture Standing Position Lumbar Spine Posture Neutral Standing Position Assistive device Assistive Devices None / NA Palapation tenderness bilateral lumbar spinal Yes: L3-L5 tenderness paraspinal Yes: L tenderness buttock tenderness Yes: L piriformis Lumbar/Sacral Tenderness Palpation Findings Lumbar/Sacral 2/4 TTP Palpation Overall Comment Accessory Movement L3 left L4 left L5 left Range of Motion Lumbar Spine Active 60 Flexion Range of Motion (degrees) Lumbar Spine Active 10 Extension Range of Motion (degrees) Left Lumbar Spine 10 Lateral Flexion Active Range of Motion (degrees) Right Lumbar Spine 10 Lateral Flexion Active Range of Motion (degrees) Manual Muscle Test Left Knee Extension 5 Normal Strength Grade Knee Flexion 5 Normal Strength Grade Hip Flexion Strength 4+ Good+ Grade Hip Abduction 4+ Good+ Strength Grade Hip Adduction 4+ Good+ Strength Grade Hip Extension 4 Good Strength Grade DTR Rt Patellar 2+ Lt Patellar 2+ Rt Gastroc/Soleus 2+ Lt Gastroc/Soleus 2+ Altered Sensation Bilateral Comment equal and intact to light touch sensation bilaterally Special Tests Sciatic Nerve Positive Left Tension Test Unilateral Straight Positive Left Leg Raise (Lasegue) Test Oswestry Index Section 1 Pain Intensity The pain is moderate and does not vary much Section 2 Personal Care ( change my way of washing or dressing in order to avoid Washing,Dresing) pain Section 3 Lifting I can lift heavy weights, but it gives me extra pain Section 4 Walking I have some pain when walking but it does not increase with distance Section 5 Sitting Pain prevents me from sitting for more than one hour Section 6 Standing I have some pain on standing, but it does not increase with time Section 7 Sleeping Because of my pain, my normal night's sleep is less than 4 hours Section 8 Social Life My social life is normal and gives me no extra pain Section 9 Traveling I get some pain when traveling, but none of my usual forms of travel m Section 10 Changing Degreee of My pain is neither getting better or worse Pain Score and Risk Level Oswestry Sc 15 Oswestry Risk Level Moderate Disability Outpatient Therapy Assessment Prognosis Rehab Potential Good Comment Pt requested home exercise program only due to starting school in [place] next week and working on campus. Pt states she plans to see a PT in [place] if needed. Clinical Impression Consistent with Yes Diagnosis Outpatient Therapy Plan of Care Addendums This patient is a No candidate for social or vocational rehab ? Patient/Guardian Yes verbally acknowledges understanding of treatment program and consents to further treatment? Patient/Guardian Yes verbally acknowledges understanding of diagnosis, prognosis and goals for treatment? Eval Complexity PT Charges 80980 - Low Complexity Shoulder/Elbow Eval Shoulder Objective Measurements Elbow Objective Measurements PHYSICIAN CERTIFICATION: I certify the specified therapy services for Jenise Webber are required, authorized, and reviewed every 30 days.
== END 2025-04-13 23:59 | disposition home or self-care (01) ==
LOC: PT 13:41
PROVIDERS: Visit Provider Nurse Practitioner
DX: M54.42 Lumbago with sciatica, left side (principal); M54.6 Pain in thoracic spine
CPT/HCPCS: 97161

== ENCOUNTER 2025-05-07 13:58 | Outpatient (CLI) | payer BC, SELFPAY ==
--- OUTSIDE RECORDS SUMMARY | 2024-12-21 04:45 | XMS_ITS ---
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 Encounters Encounter Location Date Provider Diagnosis [facility] [address] [place] [address] 12/21/2024 Katy Farias Plan Of Treatment No Information Progress Notes * Jenise HOLGUINDOB:2005 ([age] yo F)Acc No.[id number]:12/21/2024 Progress Note Patient: Jenise Newsome Provider: José Manuel FARIAS APRN :2005 A ge:19 Y S ex:Female Date:12/21/2024 [id number] Subjective: * 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
--- OUTSIDE RECORDS SUMMARY | 2025-05-07 14:06 | XMS_ITS | Clinical Summary ---
Author Organization [facility] Address [address] [place] [phone] Phone Care Team Providers Care Line Locator Name Role Phone No Pcp, Provider Not In [facility] Primary [facility] Provid er Unavailable Allergies [...] Vaccine (1 of 2 - Standard) 2019 Cervical Cancer Screening 2024 Pap Smear 2024 COVID-19 Vaccine ( season) 2025 Influenza Vaccine (#1) 2025 , 06/02/2020, 06/09/2018, [...] history exists Insurance Grant FRANCISCO JAVIER [place] [id number] [facility] Care Teams Line Locator Relationship Specialty Start Date End Date No Pcp, Provider Not In Epic PCP - General 01/26/24
--- OUTSIDE RECORDS SUMMARY | 2025-05-07 14:06 | XMS_ITS | Patient Health Record ---
Author Organization [facility] Address [address] [facility] [address] [place] [address] Care Team Providers Care Wood Pile Driver Operator Name Role Phone Katy Farias Unavailable [phone] Zahira Carter Unavailable [phone] Reason For Referral No Information Social History [...]
--- NOTE | 2025-05-07 14:30 | MR_ITS ---
FINAL REPORT TECHNIQUE: Multiplanar and multisequence imaging of the lumbar spine was obtained without contrast. CLINICAL HISTORY: lumbar and thoracic back pain with left sciatica FINDINGS: There is normal alignment of the lumbar vertebral bodies. Vertebral body height is preserved. The spinal cord ends at the level of L1. There is normal signal intensity within the substance of the distal spinal cord. No acute bone marrow edema or pathologic marrow replacement. No acute paraspinal abnormality is identified. L1-2: There is no focal disc herniation, central canal stenosis or neuroforaminal narrowing. L2-3: There is no focal disc herniation, central canal stenosis or neuroforaminal narrowing. L3-4: There is no focal disc herniation, central canal stenosis or neuroforaminal narrowing. L4-5: Annular disc bulge without significant central canal stenosis L5-S1: Annular disc bulge without significant central canal stenosis. IMPRESSION: Annular disc bulges at L4-5 and L5-S1 without significant central canal stenosis. Reviewed, Interpreted and Dictated by Mary Ann Paul MD Transcribed by Paulette Hernandez Authenticated and . [facility]
--- NOTE | 2025-05-07 15:15 | MR_ITS ---
FINAL REPORT TECHNIQUE: Multiplanar and multisequence MR imaging was obtained through the thoracic spine. CLINICAL HISTORY: lumbar and thoracic back pain with left sciatica COMPARISON: None FINDINGS: There is normal alignment of the thoracic vertebral bodies in the sagittal plane. Vertebral body height is preserved. There is no bone marrow edema or pathologic marrow replacement. Signal intensity within the substance of the spinal cord is normal. No acute paraspinal abnormality. There is no focal disc herniation, central canal stenosis, or significant foraminal narrowing. IMPRESSION: No acute abnormality of the thoracic spine. No focal disc herniation. Reviewed, Interpreted and Dictated by Mary Ann Paul MD Transcribed by Pastora Fernando Authenticated and [facility]
== END 2025-05-07 23:59 | disposition home or self-care (01) ==
LOC: RAD 13:59
PROVIDERS: PCP Family Medicine; Visit Provider Nurse Practitioner
DX: M51.16 Intervertebral disc disorders with radiculopathy, lumbar region (principal); M51.17 Intervertebral disc disorders with radiculopathy, lumbosacral region; M41.9 Scoliosis, unspecified; M53.3 Sacrococcygeal disorders, not elsewhere classified
CPT/HCPCS: 72146; 72148